=== PATIENT | male | born 1955 | race Caucasian/White ===

== ENCOUNTER 2016-09-19 20:43 | Outpatient (CLI) | payer OTHER ==
[2016-09-19 21:13] VITALS: BMI 27.0
== END 2016-09-19 20:44 | disposition home or self-care (01) ==
LOC: AMBL 20:43
PROVIDERS: ATTEND Family Medicine
DX: R10.9 Unspecified abdominal pain (principal); Z87.19 Personal history of other diseases of the digestive system; Z86.19 Personal history of other infectious and parasitic diseases

== ENCOUNTER 2016-09-19 20:55 | Emergency (ER) | payer OTHER ==
[2016-09-19 21:13] VITALS: BP 137/86; TEMP 97.2; BMI 27.0
[2016-09-19] MEDS ORDERED: PHENERGAN 25 MG/ML VIAL IM STA (21:24)
[2016-09-19] MEDS ORDERED: DILAUDID 1 MG/ML SYRINGE IM STA (21:24)
[2016-09-19] MEDS ORDERED: ZOFRAN 4 MG/2 ML IVP STA (21:29)
[2016-09-19] MEDS ORDERED: DILAUDID 1 MG/ML SYRINGE IVP STA ×2 (21:29→23:28)
[2016-09-19 21:40] LABS: BASOPHILS # (AUTO) 0.1 K/uL (0-0.2); EOSINOPHILS # (AUTO) 0.1 K/ul (0.0-0.7); EOSINOPHILS % (AUTO) 1.5 % (0.0-7.0); HEMATOCRIT 39.9 % (42.0-52.0); HEMOGLOBIN 13.4 g/dl (14.0-18.0); IMMATURE GRANULOCYTE % (AUTO) 0.2 % (0.0-5.0); LYMPHOCYTES # (AUTO) 4.2 K/uL (0.60-3.4); LYMPHOCYTES % (AUTO) 44.5 (10.0-50.0); MEAN CORPUSCULAR HEMOGLOBIN 32.1 pg (27.0-31.0); MEAN CORPUSCULAR HGB CONC 33.6 (31.8-35.4); MEAN CORPUSCULAR VOLUME 95.7 fl (80.0-94.0); MONOCYTES # (AUTO) 1.4 K/uL (0.4-2.0); MONOCYTES % (AUTO) 14.8 (0-10); NEUTROPHILS # (AUTO) 3.6 K/ul (2.0-6.9); PLATELET COUNT 330 10^3/uL (140-440); RED BLOOD COUNT 4.17 10^6/ul (4.70-6.10); WHITE BLOOD COUNT 9.33 K/ul (4.2-10.2)
--- NOTE | 2016-09-19 22:08 | CT ---
EXAM: CT scan abdomen pelvis without contrast HISTORY: Abdominal pain COMPARISON CT scan abdomen pelvis 08/01/2016 FINDINGS: Contiguous axial images obtained through the abdomen pelvis without contrast utilizing pr e mm collimation. Sagittal coronal reconstructions were imaged and reviewed.. The visualized lung bases are clear. There has been prior cholecystectomy and splenectomy.. Scattered calcifications a re seen in the pancreas compared with chronic pancreatitis. The liver is unremarkable. The kidneys and adrenal glands have normal unenhanced CT appearance. Nonspecific subcentimeter retroperitoneal lymph nodes. Atherosclerotic changes are seen involving the aorta without aneurysm formation.. Michelle stomotic small bowel sutures are seen to the left of midline within the upper pelvis. There is mild dilatation of the small bowel at the level of the anastomoses.. Degenerative changes are seen with in the lower lumbar spine. IMPRESSION: FINDINGS Chronic pancreatitis No acute findings. Cholecystectomy, splenectomy and small bowel surgery Mild distension of the small bowel at the level of the anastomosis without definitive obstructive ch anges. Suggest follow-up plain film examination of the abdomen.
[2016-09-19 22:15] LABS: ALBUMIN 2.7 g/dL (3.4-5.0); ALBUMIN/GLOBULIN RATIO 0.54; ANION GAP 10.5; BILIRUBIN,TOTAL 0.75 mg/dL (0.00-1.20); BUN/CREATININE RATIO 13.51; CALCIUM 8.4 mg/dL (8.2-10.2); CREATININE 0.74 mg/dL (0.60-1.10); POTASSIUM 3.5 mmol/L (3.5-5.1); TOTAL PROTEIN 7.7 g/dL (5.8-8.1); TROPONIN I 0.015 ng/ml (0.0000-0.4000)
[2016-09-19 22:51] LABS: ADD URINE MICROSCOPIC NO; BILIRUBIN,URINE Negative (NEGATIVE); KETONES,URINE Trace (NEGATIVE); LEUKOCYTE ESTERASE ,URINE Negative (NEGATIVE); NITRITE,URINE Negative (NEGATIVE); PH,URINE 5.5 (5-9); PROTEIN,URINE Negative (NEGATIVE); URINE, BLOOD Negative (NEGATIVE)
--- NOTE | 2016-09-19 23:31 | ED.PDOC ---
General ED Provider: Dr. CATHIE GARCIA-ER Chief Complaint: Abdominal Pain Stated Complaint: im hurting Time Seen by Physician: 20:55 Mode of Arrival: Ambulance Information Source: Patient Exam Limitations: No limitations Primary Care Provider: MACO GREENE Nursing and Triage Documentation Reviewed and Agree: Yes GI Complaint Exam - Abdominal Pain Complaint/Exam Onset: Gradual Duration: several hours Symptoms Are: Still present Timing: Constant Initial Severity: Mild Current Severity: Moderate Location of Pain: Diffuse Character: Reports: Dull, Aching, Cramping Aggravating: Reports: None Alleviating: Reports: None Associated Signs and Symptoms: Denies: Diaphoresis, Fever, Cough, Chest pain, Dizziness, Back pain, Constipation, Blood in stool, Dysuria, Urinary frequency, Decreased urine output, Decreased appetite, Discharge, Nausea, Vomiting, Diarrhea, Decreased activity Related History: Reports: Similar episode Related Surgical History: Reports: Cholecystectomy Abdominal Findings: Present: None Quality Indicator For Non-Traumatic Chest Pain/Syncope: EKG Performed Review of Systems - Review Of Systems Constitutional: Reports: No symptoms Eyes: Reports: No symptoms Ears, Nose, Mouth, Throat: Reports: No symptoms Respiratory: Reports: No symptoms Cardiac: Reports: No symptoms GI: Reports: Abdominal pain : Reports: No symptoms Musculoskeletal: Reports: No symptoms Skin: Reports: No symptoms Neurological: Reports: No symptoms Endocrine: Reports: No symptoms Hematologic/Lymphatic: Reports: No symptoms All Other Systems: Reviewed and Negative Past Medical History - Past Medical History Previously Healthy: Yes Endocrine: Reports: DM 2 (sugars controlled per patient - informed need closer control states is able to follow with Dr Greene) Cardiovascular: Reports: None Respiratory: Reports: None Hematological: Reports: None Gastrointestinal: Reports: Pancreatitis Genitourinary: Reports: None Neuro/Psych: Reports: None Musculoskeletal: Reports: Arthritis, Back Pain Cancer: Reports: None Other Pertinent Past Medical History: chronic low back pain, arthritis - Surgical History General Surgical History: Reports: Back Surgery, Other (Pancreatic stent placement March/removal 3 weeks ago - both in [employer]), Unknown (pancreas, stent placed in pancreas 03/09/16 in [place]) - Family History Family History: Reports: Unknown - Social History Smoking Status: Current every day smoker Hx Substance Use: Yes (alcohol) Alcohol Screening: None Lives: With family - Immunizations Tetanus Shot up to Date: Yes Physical Exam - Physical Exam Appearance: Well-appearing, No pain distress, Well-nourished Pain Distress: Moderate Eyes: BETTIE ENT: Ears normal, Nose normal, Oropharynx normal Neck: Supple Respiratory: Airway patent, Breath sounds clear, Breath sounds equal, Respirations nonlabored Cardiovascular: RRR, Pulses normal, No rub, No murmur GI/: Soft Musculoskeletal: Normal strength, ROM intact, No edema, No calf tenderness Skin: Warm, Dry, Normal color Neurological: Sensation intact, Motor intact, Reflexes intact, Cranial nerves intact, Alert, Oriented Psychiatric: Affect appropriate, Mood appropriate Interpretation - Radiology Interpretation Radiology Interpretation By: Radiologist Radiology Results: Positive Exam Interpreted: CT Scan - EKG Interpretation Time of EKG #1: 23:30 Rate: Normal Rhythm: Sinus Ectopy: None [place]: NL ST Segment: Normal Critical Care Note - Critical Care Note Total Time (mins): 0 Course - Course Hematology/Chemistry: 09/19/16 21:38 09/19/16 21:38 Orders, Labs, Meds: Lab Review 09/19/16 09/19/16 21:38 22:40 WBC 9.33 RBC 4.17 L Hgb 13.4 L Hct 39.9 L MCV 95.7 H MCH 32.1 H MCHC 33.6 RDW Coeff of Gui 14.3 Plt Count 330 Immature Gran % (Auto) 0.2 Neut % (Auto) 38.0 Lymph % (Auto) 44.5 [place] % (Auto) 14.8 H Eos % (Auto) 1.5 Baso % (Auto) 1.0 Immature Gran # (Auto) 0.0 Neut # 3.6 Lymph # 4.2 H [place] # 1.4 Eos # 0.1 Baso # 0.1 Sodium 140 Potassium 3.5 Chloride 107 Carbon Dioxide 26 Anion Gap 10.5 BUN 10 Creatinine 0.74 Estimated GFR (MDRD) 108.00 BUN/Creatinine Ratio 13.51 Glucose 83 Calcium 8.4 Total Bilirubin 0.75 AST 146 H ALT 100 H Alkaline Phosphatase 135 H Total Creatine Kinase 55 Troponin I 0.0150 Total Protein 7.7 Albumin 2.7 L Globulin 5.0 Albumin/Globulin Ratio 0.54 Amylase 53 Lipase 5 L Urine Color Yellow Urine Clarity Clear Urine pH 5.5 Ur Specific [place] 1.020 Urine Protein Negative Urine Glucose (UA) Negative Urine Ketones Trace Urine Blood Negative Urine Nitrite Negative Urine Bilirubin Negative Urine Urobilinogen 1.0 Ur Leukocyte Esterase Negative Orders Category Date Time Status EKG-(ED ONLY) Stat CARDIO 09/19/16 21:24 Completed AMYLASE Stat LAB 09/19/16 21:38 Completed CBC W/ AUTO DIFF Stat LAB 09/19/16 21:38 Completed COMPREHENSIVE METABOLIC PANEL Stat LAB 09/19/16 21:38 Completed CREATINE KINASE Stat LAB 09/19/16 21:38 Completed LIPASE Stat LAB 09/19/16 21:38 Completed TROPONIN I Stat LAB 09/19/16 21:38 Completed URINALYSIS C & S IF INDICATED Stat LAB 09/19/16 22:40 Completed Hydromorphone HCl [Dilaudid 1 mg/ml Syringe] MEDS 09/19/16 23:28 Stat 0.5 mg IVP ONCE STA Hydromorphone HCl [Dilaudid 1 mg/ml Syringe] MEDS 09/19/16 21:29 Discontinued 1 mg IVP ONCE STA Ondansetron HCl/Pf [Zofran 4 mg/2 ml] MEDS 09/19/16 21:29 Discontinued 4 mg IVP ONCE STA CT ABDOMEN/PELVIS WO CONTRAST Stat RADS 09/19/16 21:24 Completed Medications Generic Name Dose Route Start Last Admin Trade Name Freq PRN Reason Stop Dose Admin Hydromorphone HCl 0.5 mg 09/19/16 23:28 Dilaudid 1 Mg/Ml Syringe IVP 09/19/16 23:29 ONCE STA Discontinued Medications Generic Name Dose Route Start Last Admin Trade Name Freq PRN Reason Stop Dose Admin Hydromorphone HCl 1 mg 09/19/16 21:29 09/19/16 21:38 Dilaudid 1 Mg/Ml Syringe IVP 09/19/16 21:30 1 mg ONCE STA Administration Ondansetron HCl 4 mg 09/19/16 21:29 09/19/16 21:39 Zofran 4 Mg/2 Ml IVP 09/19/16 21:30 4 mg ONCE STA Administration Vital Signs: Temp Pulse Resp BP Pulse Ox 09/19/16 20:56 97.2 F L 73 18 137/86 94 L Departure - Departure Time of Disposition: 23:30 Disposition: HOME SELF-CARE Discharge Problem: Pancreatitis Qualifiers: Chronicity: chronic Pancreatitis type: unspecified pancreatitis type Qualifier Code: (K86.1) Other chronic pancreatitis Instructions: Pancreatitis (ED) Condition: Good Pt referred to PMD for follow-up: Yes Additional Instructions: f/u with pcp Allergies/Adverse Reactions: Allergies codeine Adverse Reaction (Verified 09/19/16 21:05) Sulfa (Sulfonamide Antibiotics) Adverse Reaction (Verified 09/19/16 21:05) Home Medications: Ambulatory Orders Escitalopram Oxalate 10 mg PO DAILY 04/01/13 Gabapentin 300 mg PO TID 04/01/13 Insulin Glargine,Hum.rec.anlog [Lantus] 15 unit SQ BEDTIME 04/02/13 Alprazolam [Xanax] 1 mg PO TID 07/09/13 Insulin Regular, Human [Novolin R] 100 unit IJ DIRECTED 07/09/13 Lipase/Protease/Amylase [Terri Singh 24,000 Units Capsule] 2 each PO DAILY Omeprazole [Prilosec] 20 mg PO QDAC 08/12/15 Hydrocodone/Acetaminophen [[place] 10-325 Tablet] 10 - 325 mg PO TID PRN 04/11/16 Disposition Discussed With: Patient
== END 2016-09-19 23:55 | disposition home or self-care (01) ==
LOC: ED 20:55
DX: K86.1 Other chronic pancreatitis (principal); E11.9 Type 2 diabetes mellitus without complications; F17.210 Nicotine dependence, cigarettes, uncomplicated; Z79.899 Other long term (current) drug therapy
CPT/HCPCS: 36415; 80053; 81001; 82150; 82550; 83690; 84484; 85025; 93005; 93010; 96374; 96375; 96376; 99283

== ENCOUNTER 2016-10-12 18:43 | Outpatient (CLI) ==
[2016-10-12 18:58] VITALS: BMI 27.4
== END 2016-10-12 18:44 | disposition home or self-care (01) ==
LOC: AMBL 18:43
PROVIDERS: ATTEND Emergency Medicine
DX: R10.9 Unspecified abdominal pain (principal)

== ENCOUNTER 2016-10-12 18:53 | Emergency (ER) ==
[2016-10-12 18:58] VITALS: BP 141/81; TEMP 98.1; BMI 27.4
--- NOTE | 2016-10-12 19:06 | ED.PDOC ---
General ED Provider: Dr. TRAN LAWLER Chief Complaint: Abdominal Pain Stated Complaint: Patient is a 61 year old femal who comes to the Er with bdominal pin for the lat two days. States the pain is intermitent. Started after he stopped taking Gabapentin for no reason. Time Seen by Physician: 19:05 Mode of Arrival: Ambulance Information Source: Patient Exam Limitations: No limitations Primary Care Provider: MACO GREENE Nursing and Triage Documentation Reviewed and Agree: Yes GI Complaint Exam - Abdominal Pain Complaint/Exam Onset: Gradual Duration: 2 days Symptoms Are: Still present Timing: Constant Initial Severity: Moderate Current Severity: Severe Location of Pain: Diffuse Radiates To: Reports: Inguinal Character: Reports: Dull, Aching Aggravating: Reports: Movement Associated Signs and Symptoms: Reports: Nausea. Denies: Diaphoresis, Fever, Cough, Chest pain, Dizziness, Back pain, Constipation, Blood in stool, Dysuria, Urinary frequency, Decreased urine output, Decreased appetite, Discharge, Vomiting, Diarrhea, Decreased activity AAA Risk Factors: Reports: None Cardiac Risk Factors: Reports: None Testicular Torsion Risk Factors: Reports: None Surgical Obstruction Risk Factors: Reports: None Related Surgical History: Reports: None Abdominal Findings: Present: Abdominal distention, Rebound tenderness, Peritoneal signs, McBurney's Point tender. Absent: CVA Tenderness Differential Diagnoses: Appendicitis, Gastroenteritis, Pancreatitis, UTI Review of Systems - Review Of Systems Constitutional: Reports: No symptoms Eyes: Reports: No symptoms Ears, Nose, Mouth, Throat: Reports: No symptoms Respiratory: Reports: No symptoms Cardiac: Reports: No symptoms GI: Reports: Abdominal pain, Poor appetite : Reports: No symptoms Musculoskeletal: Reports: No symptoms Skin: Reports: No symptoms Neurological: Reports: Anxiety Endocrine: Reports: No symptoms Hematologic/Lymphatic: Reports: No symptoms All Other Systems: Reviewed and Negative Past Medical History - Past Medical History Previously Healthy: Yes Endocrine: Reports: DM 2 (sugars controlled per patient - informed need closer control states is able to follow with Dr Greene) Cardiovascular: Reports: None Respiratory: Reports: None Hematological: Reports: None Gastrointestinal: Reports: Pancreatitis Genitourinary: Reports: None Neuro/Psych: Reports: None Musculoskeletal: Reports: Arthritis, Back Pain Cancer: Reports: None Other Pertinent Past Medical History: chronic low back pain, arthritis - Surgical History General Surgical History: Reports: Back Surgery, Other (Pancreatic stent placement March/removal 3 weeks ago - both in [place]), Unknown (pancreas, stent placed in pancreas 03/09/16 in [place]) - Family History Family History: Reports: Unknown - Social History Smoking Status: Current every day smoker Hx Substance Use: Yes (alcohol) Alcohol Screening: None - Immunizations Tetanus Shot up to Date: Yes Physical Exam - Physical Exam Appearance: Ill-appearing Ill-appearing: Moderate Pain Distress: Severe Eyes: BETTIE, EOMI, Conjunctiva clear ENT: Ears normal, Nose normal, Oropharynx normal Neck: Supple Respiratory: Airway patent, Breath sounds clear, Breath sounds equal, Respirations nonlabored Cardiovascular: RRR, Pulses normal, No rub, No murmur GI/: Soft, Tender, Bowel sounds hyperactive Musculoskeletal: Normal strength, ROM intact, No edema, No calf tenderness Skin: Warm, Dry, Normal color Neurological: Sensation intact, Motor intact Psychiatric: Anxious Interpretation - Radiology Interpretation Radiology Interpretation By: Radiologist Radiology Results: No acute changes (Possible cirrhosis) Exam Interpreted: CT Scan (Abdomen and Pelvis.) Re-Evaluation - Re-Evaluation Time of Re-Evaluation: 21:27 Status: Improved Vital Signs Stable: Yes Pain Level: better. Critical Care Note - Critical Care Note Total Time (mins): 0 Course - Course Hematology/Chemistry: 10/12/16 19:19 10/12/16 19:19 Orders, Labs, Meds: Lab Review 10/12/16 10/12/16 19:19 19:30 WBC 8.82 RBC 4.43 L Hgb 14.5 Hct 42.2 MCV 95.3 H MCH 32.7 H MCHC 34.4 RDW Coeff of Gui 14.4 Plt Count 263 Immature Gran % (Auto) 0.1 Neut % (Auto) 32.2 Lymph % (Auto) 49.2 [place] % (Auto) 15.9 H Eos % (Auto) 1.7 Baso % (Auto) 0.9 Immature Gran # (Auto) 0.0 Neut # 2.8 Lymph # 4.3 H [place] # 1.4 Eos # 0.2 Baso # 0.1 Sodium 135 L Potassium 4.5 Chloride 102 Carbon Dioxide 27 Anion Gap 10.5 BUN 11 Creatinine 0.83 Estimated GFR (MDRD) 94.00 BUN/Creatinine Ratio 13.25 Glucose 325 H Calcium 8.4 Total Bilirubin 1.04 AST 249 H ALT 178 H Alkaline Phosphatase 148 H Total Protein 8.0 Albumin 2.9 L Globulin 5.1 Albumin/Globulin Ratio 0.57 Amylase 60 Lipase 9 Urine Color Yellow Urine Clarity Clear Urine pH 6.0 Ur Specific [place] 1.020 Urine Protein Negative Urine Glucose (UA) 2+ Urine Ketones Negative Urine Blood Trace-intact Urine Nitrite Negative Urine Bilirubin Negative Urine Urobilinogen 1.0 Ur Leukocyte Esterase Negative Urine Microscopic RBC 2-5 Ur Squamous Epith Cells Not present Orders Category Date Time Status ED IV/MEDIPORT/POWERPORT .ONCE EMERGENCY 10/12/16 19:09 Active AMYLASE Stat LAB 10/12/16 19:19 Completed CBC W/ AUTO DIFF Stat LAB 10/12/16 19:19 Completed COMPREHENSIVE METABOLIC PANEL Stat LAB 10/12/16 19:19 Completed HEPATITIS PANEL, ACUTE Stat LAB 10/12/16 19:20 Received LIPASE Stat LAB 10/12/16 19:19 Completed URINALYSIS C & S IF INDICATED Stat LAB 10/12/16 19:30 Completed 0.9 % Sodium Chloride [Saline Flush] MEDS 10/12/16 19:09 Ordered 1 syr IVF PRN PRN Dicyclomine Inj [Bentyl] MEDS 10/12/16 19:20 Discontinued 20 mg IM ONCE STA Ondansetron HCl/Pf [Zofran 4 mg/2 ml] MEDS 10/12/16 19:20 Discontinued 4 mg IVP ONCE STA Pantoprazole Sodium [Protonix IV] MEDS 10/12/16 19:20 Discontinued 40 mg IVP ONCE STA Sodium Chloride 0.9% [Sodium Chloride] 1,000 ml MEDS 10/12/16 19:[address] ABD/PEL WO RENAL STONE PROT Stat RADS 10/12/16 19:09 Completed Medications Generic Name Dose Route Start Last Admin Trade Name Freq PRN Reason Stop Dose Admin Sodium Chloride 1 syr 10/12/16 19:09 10/12/16 19:52 Saline Flush IVF 1 syr PRN PRN Administration To flush IV Discontinued Medications Generic Name Dose Route Start Last Admin Trade Name Freq PRN Reason Stop Dose Admin Dicyclomine HCl 20 mg 10/12/16 19:20 10/12/16 19:43 Bentyl IM 10/12/16 19:21 20 mg ONCE STA Administration Sodium Chloride 1,000 mls @ 1,000 mls/hr 10/12/16 19:09 10/12/16 19:55 Sodium Chloride IV 10/12/16 20:08 1,000 mls/hr BOLUS STA Administration Ondansetron HCl 4 mg 10/12/16 19:20 10/12/16 19:42 Zofran 4 Mg/2 Ml IVP 10/12/16 19:21 4 mg ONCE STA Administration Pantoprazole Sodium 40 mg 10/12/16 19:20 10/12/16 19:40 Protonix Iv IVP 10/12/16 19:21 40 mg ONCE STA Administration Vital Signs: Temp Pulse Resp BP Pulse Ox 10/12/16 18:55 98.1 F 80 16 141/81 H 98 Departure - Departure Time of Disposition: 21:19 Disposition: HOME SELF-CARE Discharge Problem: Abdominal pain, Elevated liver enzymes, Cirrhosis of liver Instructions: Acute Abdominal Pain (ED) Condition: Fair Pt referred to PMD for follow-up: Yes (in the morning. ) Additional Instructions: Follow up with PCP in 3-5 days Take home pain medications as needed. Take Bentyl as needed for Abdominal spasms Resume Neurontin at Night only until you see your doctor Prescriptions: Dicyclomine HCl [Bentyl] 10 mg PO TID PRN #20 capsule PRN Reason: Abdominal Pain Allergies/Adverse Reactions: Allergies codeine Adverse Reaction (Verified 09/19/16 21:05) Sulfa (Sulfonamide Antibiotics) Adverse Reaction (Verified 09/19/16 21:05) Home Medications: Ambulatory Orders Escitalopram Oxalate 10 mg PO DAILY 04/01/13 Gabapentin 300 mg PO TID 04/01/13 Insulin Glargine,Hum.rec.anlog [Lantus] 15 unit SQ BEDTIME 04/02/13 Alprazolam [Xanax] 1 mg PO TID 07/09/13 Insulin Regular, Human [Novolin R] 100 unit IJ DIRECTED 07/09/13 Lipase/Protease/Amylase [Terri Singh 24,000 Units Capsule] 2 each PO DAILY Omeprazole [Prilosec] 20 mg PO QDAC 08/12/15 Hydrocodone/Acetaminophen [[place] 10-325 Tablet] 10 - 325 mg PO TID PRN 04/11/16 Dicyclomine HCl [Bentyl] 10 mg PO TID PRN #20 capsule 10/12/16 Disposition Discussed With: Patient
[2016-10-12] MEDS ORDERED: SODIUM CHLORIDE 1,000 ML IV STA (19:09)
[2016-10-12] MEDS ORDERED: PROTONIX IV IVP STA (19:20)
[2016-10-12] MEDS ORDERED: BENTYL IM STA (19:20)
[2016-10-12] MEDS ORDERED: ZOFRAN 4 MG/2 ML IVP STA (19:20)
[2016-10-12 19:34] LABS: BASOPHILS # (AUTO) 0.1 K/uL (0-0.2); BASOPHILS % (AUTO) 0.9 % (0.0-3.0); EOSINOPHILS # (AUTO) 0.2 K/ul (0.0-0.7); EOSINOPHILS % (AUTO) 1.7 % (0.0-7.0); HEMATOCRIT 42.2 % (42.0-52.0); HEMOGLOBIN 14.5 g/dl (14.0-18.0); IMMATURE GRANULOCYTE % (AUTO) 0.1 % (0.0-5.0); LYMPHOCYTES # (AUTO) 4.3 K/uL (0.60-3.4); LYMPHOCYTES % (AUTO) 49.2 (10.0-50.0); MEAN CORPUSCULAR HEMOGLOBIN 32.7 pg (27.0-31.0); MEAN CORPUSCULAR HGB CONC 34.4 (31.8-35.4); MEAN CORPUSCULAR VOLUME 95.3 fl (80.0-94.0); MONOCYTES # (AUTO) 1.4 K/uL (0.4-2.0); MONOCYTES % (AUTO) 15.9 (0-10); NEUTROPHILS # (AUTO) 2.8 K/ul (2.0-6.9); NEUTROPHILS % (AUTO) 32.2; PLATELET COUNT 263 10^3/uL (140-440); RED BLOOD COUNT 4.43 10^6/ul (4.70-6.10); WHITE BLOOD COUNT 8.82 K/ul (4.2-10.2)
--- NOTE | 2016-10-12 19:52 | CT ---
EXAM: CT abdomen pelvis without intravenous contrast 10/12/2016. Sagittal and coronal reformatted images obtained HISTORY: Abdominal pain COMPARISON: 09/19/2016 FINDINGS: Subtle nodularity of the anterior liver surface. Hypertrophic caudate. Correlate for ci rrhosis. Status post cholecystectomy. The adrenal glands and kidneys show no acute abnormality. There is no evidence of bowel obstruction. Multiple pancreatic calcifications suggesting chronic pancreatitis. There is no evidence of bowel obstruction. Unremarkable urinary bladder There is no free air or free fluid. Anatomic detail is limited due to the lack of intravenous contr ast. Normal appendix. Mixed lytic sclerotic regions superior to the right acetabulum appears chronic and stable. This ina ears chronic and benign. IMPRESSION: 1. Question cirrhotic morphology of the liver. 2. Status post cholecystectomy. 3. No urinary or bowel obstruction. 4. Finding suggesting chronic pancreatitis. 5. No acute inflammatory process identified within the abdomen or pelvis within the limitation of a noncontrast enhanced examination. 6. Surgical anastomoses of small bowel within the left anterior abdomen, image 64. This area is no t well characterized due to lack of contrast. Further evaluation may be obtained as clinically luzma cated.
[2016-10-12 19:57] LABS: ALBUMIN 2.9 g/dL (3.4-5.0); ALBUMIN/GLOBULIN RATIO 0.57; ANION GAP 10.5; BILIRUBIN,TOTAL 1.04 mg/dL (0.00-1.20); BUN/CREATININE RATIO 13.25; CALCIUM 8.4 mg/dL (8.2-10.2); CREATININE 0.83 mg/dL (0.60-1.10); POTASSIUM 4.5 mmol/L (3.5-5.1)
[2016-10-12 20:00] LABS: BILIRUBIN,URINE Negative (NEGATIVE); KETONES,URINE Negative (NEGATIVE); LEUKOCYTE ESTERASE ,URINE Negative (NEGATIVE); NITRITE,URINE Negative (NEGATIVE); PROTEIN,URINE Negative (NEGATIVE); URINE, BLOOD Trace-intact (NEGATIVE)
[2016-10-12 20:04] LABS: ADD URINE MICROSCOPIC YES
== END 2016-10-12 21:30 | disposition home or self-care (01) ==
LOC: ED 18:53
DX: R10.84 Generalized abdominal pain (principal); R74.8 Abnormal levels of other serum enzymes; K74.60 Unspecified cirrhosis of liver; E11.9 Type 2 diabetes mellitus without complications; F17.210 Nicotine dependence, cigarettes, uncomplicated; Z79.899 Other long term (current) drug therapy
CPT/HCPCS: 36415; 74176; 80053; 80074; 81001; 82150; 83690; 85025; 96360; 96361; 96372; 96374; 96375; 99284

== ENCOUNTER 2016-10-25 11:33 | Emergency (ER) ==
[2016-10-25 11:41] VITALS: BP 127/78; TEMP 97.3; BMI 26.6
--- NOTE | 2016-10-25 12:52 | ED.PDOC ---
General ED Provider: Dr. CHELLE MUHAMMAD JR Chief Complaint: Dizziness Stated Complaint: dizzy and nauseated last night upon awakening, and again today , ate but still dizzy. denies headache.[ End ]97.3 73 16 93% 127/78 sinus congestion. speech is slurred slow to answer questions. normal for patient[ End ] Time Seen by Physician: 12:52 Mode of Arrival: Walk-In Information Source: Patient Exam Limitations: No limitations Primary Care Provider: PIERCE GREENE Nursing and Triage Documentation Reviewed and Agree: No Neurological Complaint Exam - Dizziness Complaint/Exam Last Known Well: 1800 10/24/16 Onset: Sudden Symptoms Are: Still present Timing: Constant Initial Severity: Moderate Current Severity: Moderate Character: Reports: Room spinning Aggravating: Reports: Exertion Alleviating: Reports: Rest Associated Signs and Symptoms: Reports: Nausea Related History: Similar episode Review of Systems - Review Of Systems Constitutional: Reports: Malaise, Weakness Eyes: Reports: No symptoms Ears, Nose, Mouth, Throat: Reports: No symptoms Respiratory: Reports: No symptoms Cardiac: Reports: No symptoms GI: Reports: Abdominal pain : Reports: No symptoms Musculoskeletal: Reports: Other (RIGHT ARM) Skin: Reports: No symptoms Neurological: Reports: Anxiety, Cognitive dysfunction (NOTE PMD STATES HISTORY OF 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, CHRONIC MEDICATION USE HISTORY OF ALCOHOLISM) Endocrine: Reports: Increased thirst Hematologic/Lymphatic: Reports: No symptoms All Other Systems: Other Past Medical History - Past Medical History Previously Healthy: Yes Endocrine: Reports: DM 2 (sugars controlled per patient follows with Dr Greene) Cardiovascular: Reports: None Respiratory: Reports: None Hematological: Reports: None Gastrointestinal: Reports: Pancreatitis Genitourinary: Reports: None Neuro/Psych: Reports: None Musculoskeletal: Reports: Arthritis, Back Pain Cancer: Reports: None Other Pertinent Past Medical History: chronic low back pain, arthritis ABCESS DRAINED(pancreas) - Surgical History General Surgical History: Reports: Back Surgery, Other (Pancreatic stent placement March/ - both in [place]), Unknown (pancreas, stent placed in pancreas 03/09/16 in [place]) - Family History Family History: Reports: Unknown - Social History Smoking Status: Current every day smoker Hx Substance Use: Yes (alcohol) Alcohol Screening: None Physical Exam - Physical Exam Appearance: Ill-appearing Ill-appearing: Mild Pain Distress: Moderate Eyes: EOMI, Conjunctiva clear, Right pupil size (3mm fixed not responsive to light able to count fingers on left not on right - states did not know he could not see out of right unsure how long this may have lasted) ENT: Ears normal, Nose normal, Oropharynx normal Neck: Supple Respiratory: Airway patent, Breath sounds equal, Respirations nonlabored, Rhonchi Cardiovascular: RRR, Pulses normal GI/: Soft, No masses, Bowel sounds normal, Tender Musculoskeletal: Limited ROM (unable to lift right aqrm over shoulder states this is new unsure how long; dizziness since awakening at six or seven pm last night, unsteady with but able to walk on right leg) Skin: Warm, Dry, Normal color Neurological: Alert (speeck clear slurred as if intoxicated but baseline - patient states not drinking in years due tro pancreatitis requests blood sugar check) Psychiatric: Affect appropriate Physician Notification - Case Discussed Physician Notified: pierce grace at [facility]- new changes- needs to see neurologist(need Time of Notification: 14:58 (also needs local pmd) Physician Notified: denia warnerdes Time of Notification: 15:06 (dr domínguez, accept obs when bed available [id number]) Critical Care Note - Critical Care Note Total Time (mins): 0 Course - Course Hematology/Chemistry: 10/25/16 13:16 10/25/16 13:16 Orders, Labs, Meds: Lab Review 10/25/16 10/25/16 13:16 16:00 WBC 7.91 RBC 4.51 L Hgb 14.9 Hct 42.8 MCV 94.9 H MCH 33.0 H MCHC 34.8 RDW Coeff of Gui 14.3 Plt Count 305 Immature Gran % (Auto) 0.3 Neut % (Auto) 43.9 Lymph % (Auto) 39.4 [place] % (Auto) 14.9 H Eos % (Auto) 0.6 Baso % (Auto) 0.9 Immature Gran # (Auto) 0.0 Neut # 3.5 Lymph # 3.1 [place] # 1.2 Eos # 0.1 Baso # 0.1 Sodium 133 L Potassium 5.0 Chloride 100 Carbon Dioxide 28 Anion Gap 10.0 BUN 12 Creatinine 0.97 Estimated GFR (MDRD) 79.00 BUN/Creatinine Ratio 12.37 Glucose 380 H Calcium 8.7 Total Bilirubin 1.25 H AST 164 H ALT 123 H Alkaline Phosphatase 145 H Total Protein 7.9 Albumin 2.9 L Globulin 5.0 Albumin/Globulin Ratio 0.58 Amylase 33 Lipase 6 L Urine Color Yellow Urine Clarity Clear Urine pH 6.0 Ur Specific [place] <=1.005 Urine Protein Negative Urine Glucose (UA) 2+ Urine Ketones Negative Urine Blood Negative Urine Nitrite Negative Urine Bilirubin Negative Urine Urobilinogen 1.0 Ur Leukocyte Esterase Negative H. pylori IgG Antibody Negative Orders Category Date Time Status ACCUCHECK (ED) [ED ACCUCHECK ASSESSMENT] .ONCE EMERGENCY 10/25/16 15:39 Active AMYLASE Stat LAB 10/25/16 13:16 Completed CBC W/ AUTO DIFF Stat LAB 10/25/16 13:16 Completed COMPREHENSIVE METABOLIC PANEL Stat LAB 10/25/16 13:16 Completed H. PYLORI SCREEN Stat LAB 10/25/16 13:16 Completed LIPASE Stat LAB 10/25/16 13:16 Completed URINALYSIS C & S IF INDICATED Stat LAB 10/25/16 16:00 Completed Gabapentin [Neurontin] MEDS 10/26/16 09:00 Discontinued 300 mg PO DAILY Hydrocodone Bit/Acetaminophen [[place] 10-325] MEDS 10/25/16 17:49 Discontinued 1 tab PO ONCE STA Insulin Regular, Human [Humulin R] MEDS 10/25/16 15:47 Discontinued 8 unit SUBCUT ONCE STA Meclizine HCl [Antivert] MEDS 10/25/16 13:11 Discontinued 25 mg PO ONCE STA Sodium Chloride 0.9% [Sodium Chloride] 1,000 ml MEDS 10/25/16 15:49 Discontinued IV 125 mls/hr CT ABDOMEN/PELVIS WO CONTRAST Stat RADS 10/25/16 13:[address] HEAD W/O CONTRAST Stat RADS 10/25/16 13:10 Completed Medications Discontinued Medications Generic Name Dose Route Start Last Admin Trade Name Freq PRN Reason Stop Dose Admin Acetaminophen/Hydrocodone Bitart 1 tab 10/25/16 17:49 10/25/16 18:03 [place] 10-325 PO 10/25/16 17:50 Not Given ONCE STA Gabapentin 300 mg 10/26/16 09:00 Neurontin PO DAILY NI Sodium Chloride 1,000 mls @ 125 mls/hr 10/25/16 15:49 10/25/16 16:23 Sodium Chloride IV 10/25/16 23:48 125 mls/hr .Q8H STA Administration Insulin Human Regular 8 unit 10/25/16 15:47 10/25/16 16:22 Humulin R SUBCUT 10/25/16 15:48 8 unit ONCE STA Administration Meclizine HCl 25 mg 10/25/16 13:11 10/25/16 13:29 Antivert PO 10/25/16 13:12 25 mg ONCE STA Administration Vital Signs: Temp Pulse Resp BP Pulse Ox 10/25/16 11:33 97.3 F L 73 16 127/78 93 L Departure - Departure Time of Disposition: 17:00 Disposition: TSF SHORT-TRM HOSP Discharge Problem: Dizziness CVA (cerebral vascular accident) Qualifiers: CVA mechanism: unspecified Qualifier Code: (I63.9) Cerebral infarction, unspecified Condition: Good Pt referred to PMD for follow-up: No (transferred) Allergies/Adverse Reactions: Allergies codeine Adverse Reaction (Verified 10/25/16 11:43) Sulfa (Sulfonamide Antibiotics) Adverse Reaction (Verified 10/25/16 11:43) Home Medications: Ambulatory Orders Escitalopram Oxalate 10 mg PO DAILY 04/01/13 Gabapentin 300 mg PO TID 04/01/13 Insulin Glargine,Hum.rec.anlog [Lantus] 15 unit SQ BEDTIME 04/02/13 Alprazolam [Xanax] 1 mg PO TID 07/09/13 Insulin Regular, Human [Novolin R] 100 unit IJ DIRECTED 07/09/13 Lipase/Protease/Amylase [Terri Singh 24,000 Units Capsule] 2 each PO DAILY Omeprazole [Prilosec] 20 mg PO QDAC 08/12/15 Hydrocodone/Acetaminophen [[place] 10-325 Tablet] 10 - 325 mg PO TID PRN 04/11/16 Dicyclomine HCl [Bentyl] 10 mg PO TID PRN #20 capsule 10/12/16
[2016-10-25] MEDS ORDERED: ANTIVERT PO STA (13:11)
[2016-10-25 13:22] LABS: BASOPHILS # (AUTO) 0.1 K/uL (0-0.2); BASOPHILS % (AUTO) 0.9 % (0.0-3.0); EOSINOPHILS # (AUTO) 0.1 K/ul (0.0-0.7); EOSINOPHILS % (AUTO) 0.6 % (0.0-7.0); HEMATOCRIT 42.8 % (42.0-52.0); HEMOGLOBIN 14.9 g/dl (14.0-18.0); IMMATURE GRANULOCYTE % (AUTO) 0.3 % (0.0-5.0); LYMPHOCYTES # (AUTO) 3.1 K/uL (0.60-3.4); LYMPHOCYTES % (AUTO) 39.4 (10.0-50.0); MEAN CORPUSCULAR HGB CONC 34.8 (31.8-35.4); MEAN CORPUSCULAR VOLUME 94.9 fl (80.0-94.0); MONOCYTES # (AUTO) 1.2 K/uL (0.4-2.0); MONOCYTES % (AUTO) 14.9 (0-10); NEUTROPHILS # (AUTO) 3.5 K/ul (2.0-6.9); NEUTROPHILS % (AUTO) 43.9; PLATELET COUNT 305 10^3/uL (140-440); RED BLOOD COUNT 4.51 10^6/ul (4.70-6.10); WHITE BLOOD COUNT 7.91 K/ul (4.2-10.2)
[2016-10-25 13:30] LABS: H. PYLORI ANTIBODY NEGATIVE (NEGATIVE); H.PYLORI INTERNAL QC INTERNAL QC VALID
[2016-10-25 13:40] LABS: ALBUMIN 2.9 g/dL (3.4-5.0); ALBUMIN/GLOBULIN RATIO 0.58; BILIRUBIN,TOTAL 1.25 mg/dL (0.00-1.20); BUN/CREATININE RATIO 12.37; CALCIUM 8.7 mg/dL (8.2-10.2); CREATININE 0.97 mg/dL (0.60-1.10); TOTAL PROTEIN 7.9 g/dL (5.8-8.1)
--- NOTE | 2016-10-25 13:48 | CT ---
EXAM: CT head without contrast. HISTORY: Confusion. Dizziness. Right arm weakness. Right visual loss. Difficulty speaking and w alking. COMPARISON: 07/08/2016. TECHNIQUE: Multiple axial images of the brain were obtained from the skull base through the vertex without intravenous contrast. FINDINGS: There is no intracranial hemorrhage or extraaxial collection. The comer-white differentia tion is maintained without evidence for acute large vascular territory infarction. Chronic small ve ssel. Changes again noted. The cortical sulci and basal cisterns are well visualized. There is no hydrocephalus, mass effect, or midline shift. The paranasal sinuses and mastoid air cells are grover r. The calvarium is intact. Old displaced nasal bone fractures again seen. Since the prior study, there has been no significant interval change. IMPRESSION: No acute intracranial abnormality. Consider correlation with MRI if there is concern for acute cere brovascular accident.
--- NOTE | 2016-10-25 14:00 | CT ---
EXAM: CT ABDOMEN AND PELVIS HISTORY: Abdominal pain TECHNIQUE: CT abdomen and pelvis without intravenous contrast. Images were reconstructed using 5 m m section thickness. Reformations were prepared. COMPARISON: 09/19/2016 FINDINGS: Diagnostic limitations exist without including contrast enhanced images. No obvious focal hepatic l esions. No spleen is identified. Gallbladder is absent. Pancreas has scattered calcifications con sistent with chronic pancreatitis. The pancreas is poorly delineated. There is mild diffuse fat st randing of the mesentery. No hydronephrosis is identified. Mild to moderate atherosclerotic diseas e. There appear to be enlarged retroperitoneal lymph nodes, similar to that previously seen. There is no gastric distension. The appendix is identified with no evidence of inflammation. There is a mid abdominal bowel anastomoses. No evidence of bowel obstruction. Urinary bladder is within normal unremarkable urinary bladder. No evidence of prostate enlargement. No ascites. Prominent fatty bilateral inguinal and bones. Bones reveal severe sclerosis of the endplates at L5/ S1 with apparent severe degenerative disc disease at this level. Mild erosion of the endplates at L 5/S1. These findings appear similar to prior studies dating as far back as 12/13/2014. Diskitis an d endplate osteomyelitis would therefore be less likely etiology. Redemonstration of cystic areas w ithin the right iliac bone/acetabulum without noticeable change. Lung bases are free of acute infil trate. No pneumoperitoneum. IMPRESSION: 1. Bowel anastomoses mid abdomen. Normal bowel gas pattern. 2. Evidence of chronic pancreatitis. 3. Enlarged retroperitoneal lymph nodes, these appear stable. 4. Apparent longstanding degenerative changes at L5/S1 as described. Correlate clinically.
[2016-10-25] MEDS ORDERED: HUMULIN R SUBCUT STA (15:47)
[2016-10-25] MEDS ORDERED: SODIUM CHLORIDE 1,000 ML IV STA (15:49)
[2016-10-25 16:18] LABS: ADD URINE MICROSCOPIC NO; BILIRUBIN,URINE Negative (NEGATIVE); KETONES,URINE Negative (NEGATIVE); LEUKOCYTE ESTERASE ,URINE Negative (NEGATIVE); NITRITE,URINE Negative (NEGATIVE); PROTEIN,URINE Negative (NEGATIVE); URINE, BLOOD Negative (NEGATIVE)
[2016-10-25] MEDS ORDERED: NORCO 10-325 PO STA (17:49)
[2016-10-26] MEDS ORDERED: NEURONTIN PO SCH (09:00)
== END 2016-10-25 18:09 | disposition short-term general hospital (02) ==
LOC: ED 11:33
DX: I63.9 Cerebral infarction, unspecified (principal); R42 Dizziness and giddiness; E11.9 Type 2 diabetes mellitus without complications; F17.210 Nicotine dependence, cigarettes, uncomplicated; Z79.899 Other long term (current) drug therapy; Z87.19 Personal history of other diseases of the digestive system
CPT/HCPCS: 36415; 80053; 81001; 82150; 82962; 83690; 85025; 86677; 96360; 96372; 99285

== ENCOUNTER 2016-10-25 18:12 | Outpatient (CLI) ==
[2016-10-25 11:41] VITALS: BMI 26.6
== END 2016-10-25 18:13 ==
LOC: AMBL 18:12
PROVIDERS: ATTEND Emergency Medicine
DX: R42 Dizziness and giddiness (principal); R73.9 Hyperglycemia, unspecified

== ENCOUNTER 2017-01-09 13:41 | Emergency (ER) ==
[2017-01-09 13:47] VITALS: BP 146/81; TEMP 97
[2017-01-09 13:48] VITALS: BMI 26.6
== END 2017-01-09 15:26 | disposition left against medical advice (07) ==
LOC: ED 13:41
DX: R10.13 Epigastric pain (principal); R10.84 Generalized abdominal pain; E11.9 Type 2 diabetes mellitus without complications; D64.9 Anemia, unspecified; R94.5 Abnormal results of liver function studies; F17.210 Nicotine dependence, cigarettes, uncomplicated; Z87.19 Personal history of other diseases of the digestive system; Z79.899 Other long term (current) drug therapy
CPT/HCPCS: 36415; 80053; 82150; 82550; 83690; 84484; 85025; 93005; 93010; 99283

== ENCOUNTER 2017-01-09 16:46 | Emergency (ER) ==
[2017-01-09 16:46] VITALS: BMI 26.6
[2017-01-09 16:51] VITALS: BP 127/80; TEMP 97.9
[2017-01-09 17:26] LABS: BASOPHILS # (AUTO) 0.1 K/uL (0-0.2); BASOPHILS % (AUTO) 0.7 % (0.0-3.0); EOSINOPHILS % (AUTO) 0.6 % (0.0-7.0); HEMATOCRIT 40.2 % (42.0-52.0); HEMOGLOBIN 14.1 g/dl (14.0-18.0); IMMATURE GRANULOCYTE % (AUTO) 0.3 % (0.0-5.0); LYMPHOCYTES # (AUTO) 3.3 K/uL (0.60-3.4); LYMPHOCYTES % (AUTO) 45.9 (10.0-50.0); MEAN CORPUSCULAR HEMOGLOBIN 33.4 pg (27.0-31.0); MEAN CORPUSCULAR HGB CONC 35.1 (31.8-35.4); MEAN CORPUSCULAR VOLUME 95.3 fl (80.0-94.0); MONOCYTES # (AUTO) 0.9 K/uL (0.4-2.0); MONOCYTES % (AUTO) 12.8 (0-10); NEUTROPHILS # (AUTO) 2.9 K/ul (2.0-6.9); NEUTROPHILS % (AUTO) 39.7; PLATELET COUNT 239 10^3/uL (140-440); RED BLOOD COUNT 4.22 10^6/ul (4.70-6.10); WHITE BLOOD COUNT 7.24 K/ul (4.2-10.2)
[2017-01-09 17:43] LABS: AMYLASE 44 U/L (25-115)
[2017-01-09 17:51] LABS: ALANINE AMINOTRANSFERASE 106 U/L (12-78); ALBUMIN 2.8 g/dL (3.4-5.0); ALBUMIN/GLOBULIN RATIO 0.56; ANION GAP 7.4; ASPARTATE AMINO TRANSFERASE 129 U/L (15-37); BLOOD UREA NITROGEN 12 mg/dL (7-18); BUN/CREATININE RATIO 11.32; CALCIUM 8.9 mg/dL (8.2-10.2); CARBON DIOXIDE 29 mmol/L (23-31); CHLORIDE 104 mmol/L (98-107); CREATINE KINASE 44 U/L; CREATININE 1.06 mg/dL (0.60-1.10); GLUCOSE 300 mg/dL (82-115); POTASSIUM 4.4 mmol/L (3.5-5.1); SODIUM 136 mmol/L (136-145); TOTAL PROTEIN 7.8 g/dL (5.8-8.1)
[2017-01-09 17:52] LABS: ALKALINE PHOSPHATASE 119 U/L (56-119)
[2017-01-09 17:53] LABS: LIPASE 4 U/L (8-78)
--- NOTE | 2017-01-09 18:18 | ED.PDOC ---
General ED Provider: Dr. PIERRE LIMA Chief Complaint: Abdominal Pain Stated Complaint: ABDOMINAL PAIN Time Seen by Physician: 17:00 (DEISI AT BEDSIDE AT ALL TIMES) Mode of Arrival: Walk-In Information Source: Patient Exam Limitations: No limitations Nursing and Triage Documentation Reviewed and Agree: Yes GI Complaint Exam - Abdominal Pain Complaint/Exam Onset: Gradual Duration: 1 DAY Symptoms Are: Resolved Timing: Intermittent Initial Severity: Mild Current Severity: None Location of Pain: Diffuse Character: Reports: Dull Aggravating: Reports: None Alleviating: Reports: None Associated Signs and Symptoms: Denies: Diaphoresis, Fever, Cough, Chest pain, Dizziness, Back pain, Constipation, Blood in stool, Dysuria, Urinary frequency, Decreased urine output, Decreased appetite, Discharge, Nausea, Vomiting, Diarrhea, Decreased activity Related History: Reports: Similar episode AAA Risk Factors: Reports: None Cardiac Risk Factors: Reports: DM Testicular Torsion Risk Factors: Reports: None Surgical Obstruction Risk Factors: Reports: None Related Surgical History: Reports: None Abdominal Findings: Present: None Differential Diagnoses: Appendicitis, Bowel Obstruction, Constipation, Diverticulitis, Gastroenteritis, Hepatitis, Pancreatitis Quality Indicators for AMI: EKG in 10min. Quality Indicators for Cardiac Chest Pain: EKG in 10min. Review of Systems - Review Of Systems Constitutional: Reports: No symptoms Eyes: Reports: No symptoms Ears, Nose, Mouth, Throat: Reports: No symptoms Respiratory: Reports: No symptoms Cardiac: Reports: No symptoms GI: Reports: Abdominal pain : Reports: No symptoms Musculoskeletal: Reports: No symptoms Skin: Reports: No symptoms Neurological: Reports: No symptoms Endocrine: Reports: No symptoms Hematologic/Lymphatic: Reports: No symptoms All Other Systems: Reviewed and Negative Past Medical History - Past Medical History Previously Healthy: Yes Endocrine: Reports: DM 2 (sugars controlled per patient follows with Dr Garg) Cardiovascular: Reports: None Respiratory: Reports: None Hematological: Reports: None Gastrointestinal: Reports: Pancreatitis Genitourinary: Reports: None Neuro/Psych: Reports: None Musculoskeletal: Reports: Arthritis, Back Pain Cancer: Reports: None Other Pertinent Past Medical History: chronic low back pain, arthritis ABCESS DRAINED(pancreas) - Surgical History General Surgical History: Reports: Back Surgery, Other (Pancreatic stent placement March/ - both in [place]), Unknown (pancreas, stent placed in pancreas 03/09/16 in [place]) - Family History Family History: Reports: Unknown - Social History Smoking Status: Current every day smoker Hx Substance Use: Yes (alcohol) Alcohol Screening: None Physical Exam - Physical Exam Appearance: Well-appearing, No pain distress, Well-nourished Eyes: BETTIE, EOMI, Conjunctiva clear ENT: Ears normal, Nose normal, Oropharynx normal Respiratory: Airway patent, Breath sounds clear, Breath sounds equal, Respirations nonlabored Cardiovascular: RRR, Pulses normal, No rub, No murmur GI/: Soft, Nontender, No masses, Bowel sounds normal, No Organomegaly Musculoskeletal: Normal strength, ROM intact, No edema, No calf tenderness Skin: Warm, Dry, Normal color Neurological: Sensation intact, Motor intact, Reflexes intact, Cranial nerves intact, Alert, Oriented Psychiatric: Affect appropriate, Mood appropriate Interpretation - Radiology Interpretation Radiology Interpretation By: Radiologist Radiology Results: No acute changes - Primary Care Nurse Rate: Eb Rhythm: Sinus - EKG Interpretation Rate: Eb Rhythm: Sinus Critical Care Note - Critical Care Note Total Time (mins): 0 Course - Course Hematology/Chemistry: 01/09/17 17:22 01/09/17 17:22 Orders, Labs, Meds: Lab Review 01/09/17 01/09/17 17:20 17:22 WBC 7.24 RBC 4.22 L Hgb 14.1 Hct 40.2 L MCV 95.3 H MCH 33.4 H MCHC 35.1 RDW Coeff of Gui 13.1 Plt Count 239 Immature Gran % (Auto) 0.3 Neut % (Auto) 39.7 Lymph % (Auto) 45.9 [place] % (Auto) 12.8 H Eos % (Auto) 0.6 Baso % (Auto) 0.7 Immature Gran # (Auto) 0.0 Neut # 2.9 Lymph # 3.3 [place] # 0.9 Eos # 0.0 Baso # 0.1 Sodium 136 Potassium 4.4 Chloride 104 Carbon Dioxide 29 Anion Gap 7.4 BUN 12 Creatinine 1.06 Estimated GFR (MDRD) 71.00 BUN/Creatinine Ratio 11.32 Glucose 300 H Calcium 8.9 Total Bilirubin 1.50 H AST 129 H ALT 106 H Alkaline Phosphatase 119 Total Creatine Kinase 44 Troponin I < 0.0100 Total Protein 7.8 Albumin 2.8 L Globulin 5.0 Albumin/Globulin Ratio 0.56 Amylase 44 Lipase 4 L Orders Category Date Time Status EKG-(ED ONLY) Stat CARDIO 01/09/17 17:17 Completed AMYLASE Stat LAB 01/09/17 17:20 Completed CBC W/ AUTO DIFF Stat LAB 01/09/17 17:22 Completed COMPREHENSIVE METABOLIC PANEL Stat LAB 01/09/17 17:22 Completed CREATINE KINASE Stat LAB 01/09/17 17:22 Completed LIPASE Stat LAB 01/09/17 17:20 Completed TROPONIN I Stat LAB 01/09/17 17:22 Completed CHEST, 2 VIEWS PA & LAT Stat RADS 01/09/17 17:[address] ABDOMEN/PELVIS WO CONTRAST Stat RADS 01/09/17 17:16 Taken Vital Signs: Temp Pulse Resp BP Pulse Ox 01/09/17 16:47 97.9 F 64 20 127/80 92 L Departure - Departure Time of Disposition: 19:00 Disposition: HOME SELF-CARE Discharge Problem: Abdominal pain Instructions: Abdominal Pain (ED) Condition: Good Pt referred to PMD for follow-up: No Additional Instructions: Please call your Family Physician as soon as possible to schedule a follow-up appointment. Allergies/Adverse Reactions: Allergies codeine Adverse Reaction (Verified 01/09/17 16:52) Sulfa (Sulfonamide Antibiotics) Adverse Reaction (Verified 01/09/17 16:52) Home Medications: Ambulatory Orders Escitalopram Oxalate 10 mg PO DAILY 04/01/13 Gabapentin 300 mg PO TID 04/01/13 Insulin Glargine,Hum.rec.anlog [Lantus] 15 unit SQ BEDTIME 04/02/13 Alprazolam [Xanax] 1 mg PO TID 07/09/13 Insulin Regular, Human [Novolin R] 100 unit IJ DIRECTED 07/09/13 Lipase/Protease/Amylase [Terri Singh 24,000 Units Capsule] 2 each PO DAILY Omeprazole [Prilosec] 20 mg PO QDAC 08/12/15 Hydrocodone/Acetaminophen [[place] 10-325 Tablet] 10 - 325 mg PO TID PRN 04/11/16 Dicyclomine HCl [Bentyl] 10 mg PO TID PRN #20 capsule 10/12/16 Azithromycin 250 mg PO DAILY 01/09/17 Propranolol HCl 10 mg PO TID 01/09/17
--- NOTE | 2017-01-09 18:23 | CT ---
Exam: CT abdomen pelvis without contrast. Clinical indication: Abdominal pain. No further information is provided. TECHNIQUE: Axial unenhanced CT images of the abdomen and pelvis were obtained followed by coronal a nd sagittal reformats. Comparison is made to the prior study dated 10/25/2016. Findings: There is some mild areas of cylindrical bronchiectasis within the bilateral lower lobes. There is a calcified right middle lobe pulmonary granuloma, consistent with old healed granulomatous disease. T he remainder the visualized portions of the lower thorax are within normal limits. There is no free intra-abdominal gas or fluid. There has been a prior cholecystectomy. The liver, adrenals, and kidneys are grossly unremarkable, given the limitations of an unenhanced CT . The spleen is absent. There are multiple punctate calcifications within the pancreas suggesting chronic pancreatitis. There are multiple enlarged terrell hepatis and peripancreatic lymph nodes measuring up to 1.6 cm in d iameter, but these are grossly unchanged. There is some prominent left periaortic retroperitoneal l ymph nodes as well. The bowel, including the appendix, is grossly unremarkable, other than a prior anastomotic staple line. There is aortoiliac atherosclerotic vascular calcifications. There is lower lumbar degenerative disc and facet disease. Impression: 1. Stable appearance of the enlarged abdominal lymph nodes, of indeterminate significance. 2. Multiple punctate pancreatic calcifications consistent with chronic pancreatitis. 3. Early cylindrical bronchiectasis within the bilateral lower lobes. 4. Otherwise unremarkable CT of the abdomen and pelvis, given the limitations of an unenhanced CT.
--- NOTE | 2017-01-09 18:44 | DI ---
EXAM: Two-view chest HISTORY: Cough COMPARISON: Single-view chest 06/18/2016 FINDINGS: The cardiomediastinal silhouette is stable.. There are emphysematous changes. There is minimal blunting of the right lateral costophrenic angle. IMPRESSION: Normal-sized cardiac silhouette. Chronic obstructive pulmonary disease. Minimal blunting right lateral costophrenic angle
== END 2017-01-09 18:58 | disposition home or self-care (01) ==
LOC: ED 16:46
DX: R10.84 Generalized abdominal pain (principal); E11.9 Type 2 diabetes mellitus without complications; D64.9 Anemia, unspecified; R94.5 Abnormal results of liver function studies; F17.210 Nicotine dependence, cigarettes, uncomplicated; Z87.19 Personal history of other diseases of the digestive system; Z79.899 Other long term (current) drug therapy
CPT/HCPCS: 36415; 80053; 82150; 82550; 83690; 84484; 85025; 93005; 93010; 99283

== ENCOUNTER 2017-03-08 17:01 | Emergency (ER) ==
[2017-03-08 17:17] VITALS: BP 123/77; TEMP 97.2; BMI 26.2
[2017-03-08 17:40] LABS: BASOPHILS # (AUTO) 0.1 K/uL (0-0.2); BASOPHILS % (AUTO) 0.6 % (0.0-3.0); EOSINOPHILS # (AUTO) 0.3 K/ul (0.0-0.7); EOSINOPHILS % (AUTO) 2.7 % (0.0-7.0); HEMATOCRIT 41.2 % (42.0-52.0); HEMOGLOBIN 14.1 g/dl (14.0-18.0); IMMATURE GRANULOCYTE % (AUTO) 0.1 % (0.0-5.0); LYMPHOCYTES % (AUTO) 50.2 (10.0-50.0); MEAN CORPUSCULAR HEMOGLOBIN 32.9 pg (27.0-31.0); MEAN CORPUSCULAR HGB CONC 34.2 (31.8-35.4); MONOCYTES # (AUTO) 1.2 K/uL (0.4-2.0); MONOCYTES % (AUTO) 12.1 (0-10); NEUTROPHILS # (AUTO) 3.4 K/ul (2.0-6.9); NEUTROPHILS % (AUTO) 34.3; PLATELET COUNT 266 10^3/uL (140-440); RED BLOOD COUNT 4.29 10^6/ul (4.70-6.10); WHITE BLOOD COUNT 9.98 K/ul (4.2-10.2)
[2017-03-08 18:00] LABS: ALBUMIN 2.9 g/dL (3.4-5.0); ALBUMIN/GLOBULIN RATIO 0.63; BILIRUBIN,TOTAL 0.84 mg/dL (0.00-1.20); BUN/CREATININE RATIO 12.16; CALCIUM 8.4 mg/dL (8.2-10.2); CREATININE 0.74 mg/dL (0.60-1.10); TOTAL PROTEIN 7.5 g/dL (5.8-8.1)
--- NOTE | 2017-03-08 18:13 | ED.PDOC ---
General ED Provider: Dr. PIERRE LIMA Chief Complaint: Abdominal Pain Stated Complaint: abdominal pain Time Seen by Physician: 17:00 (seen with blanca hess and ROSANNA GRAFF AT ALL TIME ) Mode of Arrival: Walk-In Information Source: Patient Exam Limitations: No limitations Primary Care Provider: SANJUANA ORLANDO Nursing and Triage Documentation Reviewed and Agree: Yes (PT WOULD HIS PAIN MEDS RENEWED ) GI Complaint Exam - Abdominal Pain Complaint/Exam Onset: Gradual Duration: 3 DAYS OF DIFFUSE ABDOMINAL PAIN WOULD LIKE PAIN MEDS REFILL Symptoms Are: Still present Timing: Constant Initial Severity: Mild Current Severity: Mild Location of Pain: Diffuse Character: Reports: Aching Aggravating: Reports: None Alleviating: Reports: None Associated Signs and Symptoms: Denies: Diaphoresis, Fever, Cough, Chest pain, Dizziness, Back pain, Constipation, Blood in stool, Dysuria, Urinary frequency, Decreased urine output, Decreased appetite, Discharge, Nausea, Vomiting, Diarrhea, Decreased activity Related History: Reports: Similar episode Review of Systems - Review Of Systems Constitutional: Reports: No symptoms Eyes: Reports: No symptoms Ears, Nose, Mouth, Throat: Reports: No symptoms Respiratory: Reports: No symptoms Cardiac: Reports: No symptoms GI: Reports: Abdominal pain : Reports: No symptoms Musculoskeletal: Reports: No symptoms Skin: Reports: No symptoms Neurological: Reports: No symptoms Endocrine: Reports: No symptoms Hematologic/Lymphatic: Reports: No symptoms All Other Systems: Reviewed and Negative Past Medical History - Past Medical History Previously Healthy: Yes Endocrine: Reports: DM 2 (sugars controlled per patient follows with Dr Garg) Cardiovascular: Reports: None Respiratory: Reports: None Hematological: Reports: None Gastrointestinal: Reports: Pancreatitis Genitourinary: Reports: None Neuro/Psych: Reports: None Musculoskeletal: Reports: Arthritis, Back Pain Cancer: Reports: None Other Pertinent Past Medical History: chronic low back pain, arthritis ABCESS DRAINED(pancreas) - Surgical History General Surgical History: Reports: Back Surgery, Other (Pancreatic stent placement March/ - both in [place]), Unknown (pancreas, stent placed in pancreas 03/09/16 in [place]) - Family History Family History: Reports: Unknown - Social History Smoking Status: Current every day smoker Hx Substance Use: Yes (alcohol) Alcohol Screening: None Physical Exam - Physical Exam Appearance: Well-appearing, No pain distress, Well-nourished Eyes: BETTIE, EOMI, Conjunctiva clear ENT: Ears normal, Nose normal, Oropharynx normal Respiratory: Airway patent, Breath sounds clear, Breath sounds equal, Respirations nonlabored Cardiovascular: RRR, Pulses normal, No rub, No murmur GI/: Soft, Nontender, No masses, Bowel sounds normal, No Organomegaly Musculoskeletal: Normal strength, ROM intact, No edema, No calf tenderness Skin: Warm, Dry, Normal color Neurological: Sensation intact, Motor intact, Reflexes intact, Cranial nerves intact, Alert, Oriented Psychiatric: Affect appropriate, Mood appropriate Interpretation - Radiology Interpretation Radiology Interpretation By: Radiologist Radiology Results: No acute changes Critical Care Note - Critical Care Note Total Time (mins): 0 Course - Course Hematology/Chemistry: 03/08/17 17:35 03/08/17 17:35 Orders, Labs, Meds: Lab Review 03/08/17 17:35 WBC 9.98 RBC 4.29 L Hgb 14.1 Hct 41.2 L MCV 96.0 H MCH 32.9 H MCHC 34.2 RDW Coeff of Gui 13.4 Plt Count 266 Immature Gran % (Auto) 0.1 Neut % (Auto) 34.3 Lymph % (Auto) 50.2 H Ogle % (Auto) 12.1 H Eos % (Auto) 2.7 Baso % (Auto) 0.6 Immature Gran # (Auto) 0.0 Neut # 3.4 Lymph # 5.0 H Ogle # 1.2 Eos # 0.3 Baso # 0.1 Sodium 138 Potassium 4.0 Chloride 105 Carbon Dioxide 29 Anion Gap 8.0 BUN 9 Creatinine 0.74 Estimated GFR (MDRD) 108.00 BUN/Creatinine Ratio 12.16 Glucose 110 Calcium 8.4 Total Bilirubin 0.84 AST 83 H ALT 71 Alkaline Phosphatase 96 Total Protein 7.5 Albumin 2.9 L Globulin 4.6 Albumin/Globulin Ratio 0.63 Amylase 53 Lipase 8 Orders Category Date Time Status EKG-(ED ONLY) Stat CARDIO 03/08/17 17:25 Completed AMYLASE Stat LAB 03/08/17 17:35 Completed CBC W/ AUTO DIFF Stat LAB 03/08/17 17:35 Completed COMPREHENSIVE METABOLIC PANEL Stat LAB 03/08/17 17:35 Completed LIPASE Stat LAB 03/08/17 17:[address] ABDOMEN/PELVIS WO CONTRAST Stat RADS 03/08/17 17:25 Taken Vital Signs: Temp Pulse Resp BP Pulse Ox 03/08/17 17:02 97.2 F L 56 L 16 123/77 93 L Departure - Departure Time of Disposition: 18:40 (PT WAS WELL KNOWN TO STAFF AND MYSELF. RETURNED FOR TYPICAL ABDOMINAL PAIN AND FOR PAIN. WANTS REFILL FOR OUTPATIENT PAIN MEDICATION. WITH RAQUEL URIARTE, AND ROSANNA GRAFF. I TOLD PATIENT POLITELY THAT I WILL NOT REFILL PAIN MEDICATION WITHOUT ANY INDICATION. LAB WORK WAS NORMAL. AT 6:15PM I TOLD PATIENT PENDING NORMAL CT HE WOULD BE DISCHARGED WITHOUT RENEWAL OF PAIN MEDS. PT STARTED TO INSULT THE STAFF AND THREATENING TO LEAVE. ) Disposition: HOME SELF-CARE Discharge Problem: Abdominal pain Instructions: Chronic Abdominal Pain (ED) Condition: Good Pt referred to PMD for follow-up: Yes Allergies/Adverse Reactions: Allergies codeine Adverse Reaction (Verified 03/08/17 17:17) Sulfa (Sulfonamide Antibiotics) Adverse Reaction (Verified 03/08/17 17:17) Home Medications: Ambulatory Orders Escitalopram Oxalate 10 mg PO DAILY 04/01/13 Gabapentin 300 mg PO TID 04/01/13 Insulin Glargine,Hum.rec.anlog [Lantus] 15 unit SQ BEDTIME 04/02/13 Alprazolam [Xanax] 1 mg PO TID 07/09/13 Insulin Regular, Human [Novolin R] 100 unit IJ DIRECTED 07/09/13 Lipase/Protease/Amylase [Terri Singh 24,000 Units Capsule] 2 each PO DAILY Omeprazole [Prilosec] 20 mg PO QDAC 08/12/15 Dicyclomine HCl [Bentyl] 10 mg PO TID PRN #20 capsule 10/12/16 Propranolol HCl 10 mg PO TID 01/09/17 Lipase/Protease/Amylase [Terri Singh 24,000 Units Capsule] 1 each PO TID and PRN
--- NOTE | 2017-03-08 18:23 | CT ---
EXAM: CT abdomen pelvis without contrast HISTORY: Abdominal pain, history of pancreatitis COMPARISON: 01/09/2017 TECHNIQUE: CT abdomen pelvis performed without intravenous contrast. Coronal and sagittal reformat franko images obtained FINDINGS: Subsegmental atelectasis at the lung bases. Bibasilar lower lobe thickening. No free ai r. No acute abnormalities of the bones. Stable lucent and sclerotic changes in the right iliac bon e. Degenerative changes in the spine, advanced at L5-S1. Heart mildly enlarged. Evaluation organ parenchyma limited without contrast. Caude is enlarged , a finding be seen in cirrhotic configuratio n. Patient status post cholecystectomy. Pancreatic calcifications with the pancreas poorly visuali zed. Spleen is absent. Adrenals unremarkable. No hydronephrosis or nephrolithiasis. No calculi v isualized in normal course of the ureters. Aorta normal in caliber. Moderate atherosclerosis. Gerardo dder unremarkable. Prostate normal in size. Small fat-containing inguinal hernias. Redemonstratio n of several enlarged terrell hepatic/portacaval lymph nodes that appear unchanged. Stomach unremarka ble. Postsurgical changes in the small bowel with suture line in the left abdomen. No bowel obstru ction. Appendix appears normal. Colon unremarkable. IMPRESSION: 1. No acute inflammatory process identified in the abdomen pelvis. 2. Configuration of the liver that can be seen in cirrhosis. 3. Stable enlarged upper abdominal lymph nodes, indeterminate. These are possibly related to under lying liver disease. 4. Changes of chronic pancreatitis. Pancreas poorly visualized. 5. Bibasilar lower lobe thickening, suggesting infectious/inflammatory bronchiolitis. 6. Absent spleen.
== END 2017-03-08 18:20 | disposition left against medical advice (07) ==
LOC: ED 17:01
DX: R10.84 Generalized abdominal pain (principal); G89.29 Other chronic pain; E11.9 Type 2 diabetes mellitus without complications; F17.210 Nicotine dependence, cigarettes, uncomplicated; Z79.899 Other long term (current) drug therapy; Z87.19 Personal history of other diseases of the digestive system
CPT/HCPCS: 36415; 80053; 82150; 83690; 85025; 93005; 93010; 99284

== ENCOUNTER 2017-03-21 11:46 | Emergency (ER) | payer OTHER ==
[2017-03-21 11:52] VITALS: BP 131/80; TEMP 99; BMI 28.3
[2017-03-21 12:23] LABS: BASOPHILS % (AUTO) 0.6 % (0.0-3.0); EOSINOPHILS # (AUTO) 0.1 K/ul (0.0-0.7); EOSINOPHILS % (AUTO) 1.6 % (0.0-7.0); HEMATOCRIT 41.8 % (42.0-52.0); HEMOGLOBIN 14.7 g/dl (14.0-18.0); IMMATURE GRANULOCYTE % (AUTO) 0.1 % (0.0-5.0); LYMPHOCYTES # (AUTO) 3.4 K/uL (0.60-3.4); LYMPHOCYTES % (AUTO) 50.5 (10.0-50.0); MEAN CORPUSCULAR HEMOGLOBIN 33.3 pg (27.0-31.0); MEAN CORPUSCULAR HGB CONC 35.2 (31.8-35.4); MEAN CORPUSCULAR VOLUME 94.6 fl (80.0-94.0); MONOCYTES # (AUTO) 1.1 K/uL (0.4-2.0); MONOCYTES % (AUTO) 15.4 (0-10); NEUTROPHILS # (AUTO) 2.2 K/ul (2.0-6.9); NEUTROPHILS % (AUTO) 31.8; PLATELET COUNT 227 10^3/uL (140-440); RED BLOOD COUNT 4.42 10^6/ul (4.70-6.10); WHITE BLOOD COUNT 6.81 K/ul (4.2-10.2)
[2017-03-21 12:45] LABS: ALBUMIN 2.8 g/dL (3.4-5.0); ALBUMIN/GLOBULIN RATIO 0.56; ANION GAP 10.9; BILIRUBIN,TOTAL 1.15 mg/dL (0.00-1.20); BUN/CREATININE RATIO 13.58; CALCIUM 8.6 mg/dL (8.2-10.2); CREATININE 0.81 mg/dL (0.60-1.10); POTASSIUM 3.9 mmol/L (3.5-5.1); TOTAL PROTEIN 7.8 g/dL (5.8-8.1)
--- NOTE | 2017-03-21 13:04 | CT ---
EXAM: CT ABDOMEN AND PELVIS HISTORY: Abdominal pain radiating to back, history of pancreatitis and partial pancreatic removal TECHNIQUE: CT abdomen and pelvis without intravenous contrast. Images were reconstructed using 5 m m section thickness. Reformations were prepared. COMPARISON: 03/08/2017 FINDINGS: Diagnostic limitations exist without including contrast enhanced images. No focal hepatic lesions i dentified. No spleen is seen. Gallbladder is absent. Multiple punctate calcifications within the visualized pancreas. The pancreatic tail is not seen. There is no convincing evidence of acute victoria creatitis within limits of this exam. Adrenal glands are within normal limits. No hydronephrosis. Mild to moderate atherosclerotic disease. A few prominent retroperitoneal lymph nodes are again se en. No gastric distension. There is twisting of the mesenteric root vessels and stroma in a clockwise f ashion, not seen on previous exam. Postop changes of the mid abdominal bowel are apparent. There i s no evidence of bowel obstruction. Urinary bladder and prostate are within normal limits. There i s no ascites. No ventral abdominal wall hernia. Moderately severe degenerative disc and facet disease at the lumb osacral junction. Lucencies above the right acetabulum are stable suggesting possible Paget's disea se or other benign appearing osseous atypia. Lung bases are free of acute infiltrate. No pneumoper itoneum. IMPRESSION: 1. Evidence of chronic pancreatitis and possible prior pancreatic surgery. There is no convincing evidence of acute pancreatitis on the current limited exam. 2. Prominent mesenteric lymph nodes. Postop changes of the mid abdominal bowel. Slight mesenteric t wisting in a clockwise fashion of indeterminate etiology. Conceivably early volvulus could appear s imilar although there is no evidence of bowel obstruction or abnormal bowel gas pattern currently. Correlate with clinical presentation. Follow-up KUB can be considered if indicated. 3. No definite spleen is identified. 4. Mild to moderate atherosclerotic disease. 5. Moderately severe degenerative disc and facet disease of the lumbosacral junction.
--- NOTE | 2017-03-21 13:08 | ED.PDOC ---
General ED Provider: Dr. PIERRE LIMA Chief Complaint: Abdominal Pain Stated Complaint: chronic abdominal pain Time Seen by Physician: 11:49 (seen with renee at all times negtive trauma) Mode of Arrival: Walk-In Information Source: Patient Exam Limitations: No limitations Primary Care Provider: SANJUANA ORLANDO Nursing and Triage Documentation Reviewed and Agree: Yes GI Complaint Exam - Abdominal Pain Complaint/Exam Onset: Gradual Duration: 1 day Symptoms Are: Still present Timing: Constant Initial Severity: Moderate Current Severity: Mild Location of Pain: Diffuse, Epigastric Character: Reports: Cramping Aggravating: Reports: None Alleviating: Reports: None Associated Signs and Symptoms: Denies: Diaphoresis, Fever, Cough, Chest pain, Dizziness, Back pain, Constipation, Blood in stool, Dysuria, Urinary frequency, Decreased urine output, Decreased appetite, Discharge, Nausea, Vomiting, Diarrhea, Decreased activity Related History: Reports: Similar episode AAA Risk Factors: Reports: None Cardiac Risk Factors: Reports: DM Testicular Torsion Risk Factors: Reports: None Surgical Obstruction Risk Factors: Reports: None Related Surgical History: Reports: None Abdominal Findings: Present: None Differential Diagnoses: Appendicitis, Bowel Obstruction, Constipation, Diverticulitis, Gastroenteritis, Irritable Bowel Syndrome, Pneumonia, Renal Colic, Ureteral Stone, UTI Review of Systems - Review Of Systems Constitutional: Reports: No symptoms Eyes: Reports: No symptoms Ears, Nose, Mouth, Throat: Reports: No symptoms Respiratory: Reports: No symptoms Cardiac: Reports: No symptoms GI: Reports: Abdominal pain : Reports: No symptoms Musculoskeletal: Reports: No symptoms Skin: Reports: No symptoms Neurological: Reports: No symptoms Endocrine: Reports: No symptoms Hematologic/Lymphatic: Reports: No symptoms All Other Systems: Reviewed and Negative Past Medical History - Past Medical History Previously Healthy: Yes Endocrine: Reports: DM 2 (sugars controlled per patient follows with Dr Garg) Cardiovascular: Reports: None Respiratory: Reports: None Hematological: Reports: None Gastrointestinal: Reports: Pancreatitis Genitourinary: Reports: None Neuro/Psych: Reports: None Musculoskeletal: Reports: Arthritis, Back Pain Cancer: Reports: None Other Pertinent Past Medical History: chronic low back pain, arthritis ABCESS DRAINED(pancreas) - Surgical History General Surgical History: Reports: Back Surgery, Other (Pancreatic stent placement March/ - both in [place]), Unknown (pancreas, stent placed in pancreas 03/09/16 in [place]) - Family History Family History: Reports: Unknown - Social History Smoking Status: Current some day smoker Hx Substance Use: No Alcohol Screening: None - Immunizations Tetanus Shot up to Date: No Physical Exam - Physical Exam Appearance: Well-appearing, No pain distress, Well-nourished Eyes: BETTIE, EOMI, Conjunctiva clear ENT: Ears normal, Nose normal, Oropharynx normal Respiratory: Airway patent, Breath sounds clear, Breath sounds equal, Respirations nonlabored Cardiovascular: RRR, Pulses normal, No rub, No murmur GI/: Soft, Nontender, No masses, Bowel sounds normal, No Organomegaly Musculoskeletal: Normal strength, ROM intact, No edema, No calf tenderness Skin: Warm, Dry, Normal color Neurological: Sensation intact, Motor intact, Reflexes intact, Cranial nerves intact, Alert, Oriented Psychiatric: Affect appropriate, Mood appropriate Interpretation - Radiology Interpretation Radiology Interpretation By: Radiologist Critical Care Note - Critical Care Note Total Time (mins): 0 Course - Course Hematology/Chemistry: 03/21/17 12:15 03/21/17 12:15 Orders, Labs, Meds: Lab Review 03/21/17 12:15 WBC 6.81 RBC 4.42 L Hgb 14.7 Hct 41.8 L MCV 94.6 H MCH 33.3 H MCHC 35.2 RDW Coeff of Gui 13.2 Plt Count 227 Immature Gran % (Auto) 0.1 Neut % (Auto) 31.8 Lymph % (Auto) 50.5 H [place] % (Auto) 15.4 H Eos % (Auto) 1.6 Baso % (Auto) 0.6 Immature Gran # (Auto) 0.0 Neut # 2.2 Lymph # 3.4 [place] # 1.1 Eos # 0.1 Baso # 0.0 Sodium 136 Potassium 3.9 Chloride 103 Carbon Dioxide 26 Anion Gap 10.9 BUN 11 Creatinine 0.81 Estimated GFR (MDRD) 97.00 BUN/Creatinine Ratio 13.58 Glucose 239 H Calcium 8.6 Total Bilirubin 1.15 AST 124 H ALT 98 H Alkaline Phosphatase 108 Total Protein 7.8 Albumin 2.8 L Globulin 5.0 Albumin/Globulin Ratio 0.56 Amylase 40 Lipase 5 L Orders Category Date Time Status AMYLASE Stat LAB 03/21/17 12:02 Ordered CBC W/ AUTO DIFF Stat LAB 03/21/17 12:02 Ordered COMPREHENSIVE METABOLIC PANEL Stat LAB 03/21/17 12:02 Ordered LIPASE Stat LAB 03/21/17 12:02 Ordered URINALYSIS C & S IF INDICATED Stat LAB 03/21/17 12:02 Uncollected URINE DRUG SCREEN (RAPID FOR ED) [DRUG SCREEN, URINE, LAB 03/21/17 12:02 Uncollected RAPID] Stat CT ABDOMEN/PELVIS WO CONTRAST Stat RADS 03/21/17 12:03 Ordered Vital Signs: Temp Pulse Resp BP Pulse Ox 03/21/17 11:47 99 F 70 16 131/80 91 L Departure - Departure Time of Disposition: 13:40 (D/C INSTRUCTION GIVEN WITH RENEE AT BED SIDE ) Disposition: HOME SELF-CARE Discharge Problem: Abdominal pain Instructions: Abdominal Pain (ED), Chronic Abdominal Pain (ED) Condition: Good Pt referred to PMD for follow-up: Yes Additional Instructions: Please call your Family Physician as soon as possible to schedule a follow-up appointment. Allergies/Adverse Reactions: Allergies codeine Adverse Reaction (Verified 03/21/17 11:55) Sulfa (Sulfonamide Antibiotics) Adverse Reaction (Verified 03/21/17 11:55) Home Medications: Ambulatory Orders Escitalopram Oxalate 10 mg PO DAILY 04/01/13 Gabapentin 300 mg PO TID 04/01/13 Insulin Glargine,Hum.rec.anlog [Lantus] 15 unit SQ BEDTIME 04/02/13 Alprazolam [Xanax] 1 mg PO TID 07/09/13 Insulin Regular, Human [Novolin R] 100 unit IJ DIRECTED 07/09/13 Lipase/Protease/Amylase [Terri Singh 24,000 Units Capsule] 2 each PO DAILY Omeprazole [Prilosec] 20 mg PO QDAC 08/12/15 Dicyclomine HCl [Bentyl] 10 mg PO TID PRN #20 capsule 10/12/16 Propranolol HCl 10 mg PO TID 01/09/17 Lipase/Protease/Amylase [Terri Singh 24,000 Units Capsule] 1 each PO TID and PRN
[2017-03-21 13:35] LABS: BILIRUBIN,URINE 1+ (NEGATIVE); KETONES,URINE Negative (NEGATIVE); LEUKOCYTE ESTERASE ,URINE Negative (NEGATIVE); NITRITE,URINE Negative (NEGATIVE); PH,URINE 5.5 (5-9); PROTEIN,URINE Trace (NEGATIVE); URINE, BLOOD Negative (NEGATIVE)
[2017-03-21 13:41] LABS: ADD URINE MICROSCOPIC YES
[2017-03-21 13:44] LABS: COCAIN SCREEN,URINE NEGATIVE (NEGATIVE)
== END 2017-03-21 13:23 | disposition home or self-care (01) ==
LOC: ED 11:46
DX: R10.9 Unspecified abdominal pain (principal); G89.29 Other chronic pain; F17.210 Nicotine dependence, cigarettes, uncomplicated; Z79.899 Other long term (current) drug therapy
CPT/HCPCS: 36415; 80053; 80306; 81001; 82150; 83690; 85025; 99283

== ENCOUNTER 2017-04-13 22:34 | Emergency (ER) ==
[2017-04-13 22:47] VITALS: BP 130/78; TEMP 98.6; BMI 25.0
[2017-04-13] MEDS ORDERED: DILAUDID 1 MG/ML SYRINGE IVP STA (23:01)
[2017-04-13] MEDS ORDERED: ZOFRAN 4 MG/2 ML IVP STA (23:01)
[2017-04-13] MEDS ORDERED: SODIUM CHLORIDE 1,000 ML IV STA (23:01)
--- NOTE | 2017-04-13 23:06 | ED.PDOC ---
General ED Provider: Dr. TRAN LAWLER Chief Complaint: Hypoglycemia Stated Complaint: Patient is a 61 year old male who states he has been having worsening of chronic abdominal pain and that he has not been able keep his blood glucose up. He is on insulin and states he has been trying to eat. EMS noted blood glucose was 43 and was given an ampule of D 50 with blood glucose coming up to 175. His main concern is abdominal pain Time Seen by Physician: 23:03 Mode of Arrival: Ambulance Information Source: Patient Exam Limitations: No limitations Primary Care Provider: [facility] Nursing and Triage Documentation Reviewed and Agree: Yes GI Complaint Exam - Abdominal Pain Complaint/Exam Onset: Gradual Duration: 1-2 days Symptoms Are: Still present Timing: Constant Initial Severity: Moderate Current Severity: Severe Location of Pain: Diffuse Character: Reports: Aching Aggravating: Reports: Eating Associated Signs and Symptoms: Denies: Diaphoresis, Fever, Cough, Chest pain, Dizziness, Back pain, Constipation, Blood in stool, Dysuria, Urinary frequency, Decreased urine output, Decreased appetite, Discharge, Nausea, Vomiting, Diarrhea, Decreased activity Related History: Reports: Similar episode AAA Risk Factors: Reports: None Cardiac Risk Factors: Reports: None Testicular Torsion Risk Factors: Reports: None Surgical Obstruction Risk Factors: Reports: Prior abdominal surgery Abdominal Findings: Present: Abdominal distention. Absent: Pulsatile mass, Rebound tenderness Differential Diagnoses: Appendicitis, Bowel Obstruction, Pancreatitis Review of Systems - Review Of Systems Constitutional: Reports: No symptoms Eyes: Reports: No symptoms Ears, Nose, Mouth, Throat: Reports: No symptoms Respiratory: Reports: No symptoms Cardiac: Reports: No symptoms GI: Reports: Abdominal pain, Nausea, Poor appetite : Reports: No symptoms Musculoskeletal: Reports: No symptoms Skin: Reports: No symptoms Neurological: Reports: Anxiety Endocrine: Reports: No symptoms Hematologic/Lymphatic: Reports: No symptoms All Other Systems: Reviewed and Negative Past Medical History - Past Medical History Previously Healthy: Yes Endocrine: Reports: DM 2 (sugars controlled per patient follows with Dr Garg) Cardiovascular: Reports: None Respiratory: Reports: None Hematological: Reports: None Gastrointestinal: Reports: Pancreatitis Genitourinary: Reports: None Neuro/Psych: Reports: None Musculoskeletal: Reports: Arthritis, Back Pain Cancer: Reports: None Other Pertinent Past Medical History: chronic low back pain, arthritis ABCESS DRAINED(pancreas) - Surgical History General Surgical History: Reports: Back Surgery, Other (Pancreatic stent placement March/removal - both in [place]), Unknown (pancreas, stent placed in pancreas 03/09/16 in [place]) - Family History Family History: Reports: Unknown - Social History Smoking Status: Current some day smoker Hx Substance Use: Yes (alcohol in past) Alcohol Screening: None - Immunizations Tetanus Shot up to Date: Yes Physical Exam - Physical Exam Appearance: Ill-appearing, Well-nourished Ill-appearing: Mild Pain Distress: Moderate Eyes: BETTIE, EOMI, Conjunctiva clear ENT: Ears normal, Nose normal, Oropharynx normal Neck: Supple Respiratory: Airway patent, Breath sounds clear, Breath sounds equal, Respirations nonlabored Cardiovascular: Pulses normal, No rub, No murmur, Bradycardia GI/: Soft, No masses, Bowel sounds normal, No Organomegaly, Tender (Mid abdomial scar.) Musculoskeletal: Normal strength, ROM intact, No edema, No calf tenderness Skin: Warm, Dry, Normal color Neurological: Sensation intact, Motor intact, Reflexes intact, Cranial nerves intact, Alert, Oriented Psychiatric: Anxious Interpretation - Radiology Interpretation Radiology Interpretation By: Radiologist Radiology Results: No acute changes (Chronic pancratitis) Exam Interpreted: CT Scan (Abdomen and pelvis ) Re-Evaluation - Re-Evaluation Time of Re-Evaluation: 00:50 Status: Improved Vital Signs Stable: Yes Pain Level: better Critical Care Note - Critical Care Note Total Time (mins): 15 Course - Course Hematology/Chemistry: 04/13/17 23:00 04/13/17 23:00 Orders, Labs, Meds: Lab Review 04/13/17 23:00 WBC 9.25 RBC 4.08 L Hgb 13.6 L Hct 38.5 L MCV 94.4 H MCH 33.3 H MCHC 35.3 RDW Coeff of Gui 12.6 Plt Count 226 Immature Gran % (Auto) 0.2 Neut % (Auto) 40.2 Lymph % (Auto) 41.1 Major % (Auto) 14.9 H Eos % (Auto) 2.7 Baso % (Auto) 0.9 Immature Gran # (Auto) 0.0 Neut # 3.7 Lymph # 3.8 H [place] # 1.4 Eos # 0.3 Baso # 0.1 Sodium 138 Potassium 3.8 Chloride 104 Carbon Dioxide 28 Anion Gap 9.8 BUN 11 Creatinine 0.82 Estimated GFR (MDRD) 96.00 BUN/Creatinine Ratio 13.41 Glucose 130 H Calcium 8.5 Total Bilirubin 1.04 AST 124 H ALT 85 H Alkaline Phosphatase 132 H Total Protein 7.7 Albumin 2.7 L Globulin 5.0 Albumin/Globulin Ratio 0.54 Amylase 52 Lipase < 4 L Orders Category Date Time Status ACCUCHECK (ED) [ED ACCUCHECK ASSESSMENT] .ONCE EMERGENCY 04/14/17 00:26 Active AMYLASE Stat LAB 04/13/17 23:00 Completed CBC W/ AUTO DIFF Stat LAB 04/13/17 23:00 Completed COMPREHENSIVE METABOLIC PANEL Stat LAB 04/13/17 23:00 Completed LIPASE Stat LAB 04/13/17 23:00 Completed Dicyclomine Inj [Bentyl] MEDS 04/14/17 00:11 Discontinued 20 mg IM ONCE STA Hydromorphone HCl [Dilaudid 1 mg/ml Syringe] MEDS 04/13/17 23:01 Discontinued 1 mg IVP ONCE STA Ondansetron HCl/Pf [Zofran 4 mg/2 ml] MEDS 04/13/17 23:01 Discontinued 4 mg IVP ONCE STA Sodium Chloride 0.9% [Sodium Chloride] 1,000 ml MEDS 04/13/17 23:[address] ABD/PEL WO RENAL STONE PROT Stat RADS 04/13/17 23:07 Completed Medications Discontinued Medications Generic Name Dose Route Start Last Admin Trade Name Freq PRN Reason Stop Dose Admin Dicyclomine HCl 20 mg 04/14/17 00:11 04/14/17 00:20 Bentyl IM 04/14/17 00:12 20 mg ONCE STA Administration Hydromorphone HCl 1 mg 04/13/17 23:01 04/13/17 23:08 Dilaudid 1 Mg/Ml Syringe IVP 04/13/17 23:02 1 mg ONCE STA Administration Sodium Chloride 1,000 mls @ 1,000 mls/hr 04/13/17 23:01 04/13/17 23:09 Sodium Chloride IV 04/14/17 00:00 1,000 mls/hr BOLUS STA Administration Ondansetron HCl 4 mg 04/13/17 23:01 04/13/17 23:09 Zofran 4 Mg/2 Ml IVP 04/13/17 23:02 4 mg ONCE STA Administration Vital Signs: Temp Pulse Resp BP Pulse Ox 04/13/17 22:35 98.6 F 51 L 20 130/78 93 L Departure - Departure Time of Disposition: 01:00 Disposition: HOME SELF-CARE Discharge Problem: Hypoglycemia Chronic pancreatitis Qualifiers: Pancreatitis type: unspecified pancreatitis type Qualifier Code: (K86.1) Other chronic pancreatitis Instructions: Pancreatitis (ED), Hypoglycemia in a Person with Diabetes (ED) Condition: Fair Pt referred to PMD for follow-up: Yes Additional Instructions: Continue home medications as prescribed. Follow up with LITZ[facility] Pin 1 days. hold Regular insulin until seen by PCP Allergies/Adverse Reactions: Allergies codeine Adverse Reaction (Verified 04/13/17 22:47) Sulfa (Sulfonamide Antibiotics) Adverse Reaction (Verified 04/13/17 22:47) Home Medications: Ambulatory Orders Escitalopram Oxalate 10 mg PO DAILY 04/01/13 Gabapentin 300 mg PO TID 04/01/13 Insulin Glargine,Hum.rec.anlog [Lantus] 15 unit SQ BEDTIME 04/02/13 Alprazolam [Xanax] 1 mg PO TID 07/09/13 Insulin Regular, Human [Novolin R] 100 unit IJ DIRECTED 07/09/13 Lipase/Protease/Amylase [Terri Singh 24,000 Units Capsule] 2 each PO DAILY Omeprazole [Prilosec] 20 mg PO QDAC 08/12/15 Dicyclomine HCl [Bentyl] 10 mg PO TID PRN #20 capsule 10/12/16 Propranolol HCl 10 mg PO TID 01/09/17 Lipase/Protease/Amylase [Terri Singh 24,000 Units Capsule] 1 each PO TID and PRN Disposition Discussed With: Patient
[2017-04-13 23:08] LABS: BASOPHILS # (AUTO) 0.1 K/uL (0-0.2); BASOPHILS % (AUTO) 0.9 % (0.0-3.0); EOSINOPHILS # (AUTO) 0.3 K/ul (0.0-0.7); EOSINOPHILS % (AUTO) 2.7 % (0.0-7.0); HEMATOCRIT 38.5 % (42.0-52.0); HEMOGLOBIN 13.6 g/dl (14.0-18.0); IMMATURE GRANULOCYTE % (AUTO) 0.2 % (0.0-5.0); LYMPHOCYTES # (AUTO) 3.8 K/uL (0.60-3.4); LYMPHOCYTES % (AUTO) 41.1 (10.0-50.0); MEAN CORPUSCULAR HEMOGLOBIN 33.3 pg (27.0-31.0); MEAN CORPUSCULAR HGB CONC 35.3 (31.8-35.4); MEAN CORPUSCULAR VOLUME 94.4 fl (80.0-94.0); MONOCYTES # (AUTO) 1.4 K/uL (0.4-2.0); MONOCYTES % (AUTO) 14.9 (0-10); NEUTROPHILS # (AUTO) 3.7 K/ul (2.0-6.9); NEUTROPHILS % (AUTO) 40.2; PLATELET COUNT 226 10^3/uL (140-440); RED BLOOD COUNT 4.08 10^6/ul (4.70-6.10); WHITE BLOOD COUNT 9.25 K/ul (4.2-10.2)
[2017-04-13 23:28] LABS: ALBUMIN 2.7 g/dL (3.4-5.0); AMYLASE 52 U/L (25-115); CALCIUM 8.5 mg/dL (8.2-10.2); CHLORIDE 104 mmol/L (98-107); GLUCOSE 130 mg/dL (82-115); POTASSIUM 3.8 mmol/L (3.5-5.1); SODIUM 138 mmol/L (136-145); TOTAL PROTEIN 7.7 g/dL (5.8-8.1)
[2017-04-13 23:29] LABS: ALANINE AMINOTRANSFERASE 85 U/L (12-78); ALBUMIN/GLOBULIN RATIO 0.54; ALKALINE PHOSPHATASE 132 U/L (56-119); ANION GAP 9.8; ASPARTATE AMINO TRANSFERASE 124 U/L (15-37); BILIRUBIN,TOTAL 1.04 mg/dL (0.00-1.20); BLOOD UREA NITROGEN 11 mg/dL (7-18); BUN/CREATININE RATIO 13.41; CARBON DIOXIDE 28 mmol/L (23-31); CREATININE 0.82 mg/dL (0.60-1.10)
[2017-04-13 23:30] LABS: LIPASE < 4 U/L (8-78)
[2017-04-14] MEDS ORDERED: BENTYL IM STA (00:11)
--- NOTE | 2017-04-14 00:21 | CT ---
EXAM: CT of the abdomen and pelvis without contrast. HISTORY: Abdominal pain. Chronic pancreatitis. PROCEDURE: Contiguous axial CT images of the abdomen and pelvis without contrast with coronal and s agittal reformats. FINDINGS: Comparison made with CT abdomen/pelvis 10/12/2016. The liver is normal in appearance. The gallbladder is surgically absent. There are calcifications in the pancreas consistent with chronic pancreatitis. No CT evidence of acute pancreatitis. The spleen is absent. The adrenal glands and kidneys are normal in appearance. The abdominal aorta is within normal limits in diameter. There ar e surgical sutures along the margin of a patulous segment of small bowel in the upper pelvis. The a ppendix is normal in appearance. There is fecal stasis in the colon. No free fluid or free air in the abdomen or pelvis. The bladder is adequately filled with no abnormality identified. The seminal vesicles and prostate gland are unremarkable. There are degenerative changes in the spine. There ar e stable chronic lytic and sclerotic changes in the right pelvis. Impression: Calcifications in the pancreas consistent with chronic pancreatitis. No CT evidence of acute pancreatitis. Recommend correlation with amylase and lipase levels if clinically indicated. Fecal stasis in the colon. Cholecystectomy. Splenectomy. Operative changes involving the small bowel as described.
== END 2017-04-14 00:55 | disposition home or self-care (01) ==
LOC: ED 22:34
DX: E11.649 Type 2 diabetes mellitus with hypoglycemia without coma (principal); K86.1 Other chronic pancreatitis; F17.210 Nicotine dependence, cigarettes, uncomplicated; Z79.4 Long term (current) use of insulin
CPT/HCPCS: 36415; 74176; 80053; 82150; 82962; 83690; 85025; 96361; 96372; 96374; 96375; 99283

== ENCOUNTER 2017-04-16 15:44 | Emergency (ER) ==
[2017-04-16 15:47] VITALS: BP 172/91; TEMP 98.3; BMI 25.4
[2017-04-16] MEDS ORDERED: DEMEROL 25 MG/ML SYRINGE IM STA (16:14)
[2017-04-16] MEDS ORDERED: ZOFRAN 4 MG/2 ML IM STA (16:14)
--- NOTE | 2017-04-16 16:17 | ED.PDOC ---
General ED Provider: Dr. BILL RAE Chief Complaint: Abdominal Pain Stated Complaint: Patient has chronic abdominal pain, he goes to DR Law, he started him on Oxycodone, patient says he used to take [place], oxycodone does not help him. Time Seen by Physician: 16:15 Mode of Arrival: Walk-In Information Source: Patient Primary Care Provider: BILL RAE[facility] Nursing and Triage Documentation Reviewed and Agree: Yes GI Complaint Exam - Abdominal Pain Complaint/Exam Onset: Gradual Symptoms Are: Still present Initial Severity: Moderate Current Severity: Moderate Location of Pain: Discrete Radiates To: Reports: Back, Flank Character: Reports: Dull, Aching Aggravating: Reports: None Alleviating: Reports: None AAA Risk Factors: Reports: None Cardiac Risk Factors: Reports: None Testicular Torsion Risk Factors: Reports: None Surgical Obstruction Risk Factors: Reports: None Related Surgical History: Reports: None Abdominal Findings: Absent: Pulsatile mass, Abdominal distention, Unequal femoral pulses Differential Diagnoses: Pancreatitis (chronic) Review of Systems - Review Of Systems Constitutional: Reports: No symptoms Eyes: Reports: No symptoms Ears, Nose, Mouth, Throat: Reports: No symptoms Respiratory: Reports: No symptoms Cardiac: Reports: No symptoms GI: Reports: Abdominal pain : Reports: No symptoms Musculoskeletal: Reports: No symptoms Skin: Reports: No symptoms Neurological: Reports: No symptoms Endocrine: Reports: No symptoms Hematologic/Lymphatic: Reports: No symptoms All Other Systems: Reviewed and Negative Past Medical History - Past Medical History Previously Healthy: Yes Endocrine: Reports: DM 2 (sugars controlled per patient follows with Dr Garg) Cardiovascular: Reports: None Respiratory: Reports: None Hematological: Reports: None Gastrointestinal: Reports: Pancreatitis Genitourinary: Reports: None Neuro/Psych: Reports: None Musculoskeletal: Reports: Arthritis, Back Pain Cancer: Reports: None Other Pertinent Past Medical History: chronic low back pain, arthritis ABCESS DRAINED(pancreas) - Surgical History General Surgical History: Reports: Back Surgery, Other (Pancreatic stent placement March/removal - both in [place]), Unknown (pancreas, stent [place] in pancreas 03[place]16 [place] - Family History Family History: Reports: Unknown - Social History Smoking Status: Current some day smoker Hx Substance Use: Yes (alcohol in past) Alcohol Screening: None Physical Exam - Physical Exam Appearance: Ill-appearing Pain Distress: Moderate Eyes: BETTIE, EOMI, Conjunctiva clear ENT: Ears normal, Nose normal, Oropharynx normal Respiratory: Airway patent, Breath sounds clear, Breath sounds equal, Respirations nonlabored Cardiovascular: RRR, Pulses normal, No rub, No murmur GI/: Tender Musculoskeletal: Normal strength, ROM intact, No edema, No calf tenderness Skin: Warm, Dry, Normal color Neurological: Sensation intact, Motor intact, Reflexes intact, Cranial nerves intact, Alert, Oriented Psychiatric: Affect appropriate, Mood appropriate Critical Care Note - Critical Care Note Total Time (mins): 0 Course - Course Orders, Labs, Meds: Orders Category Date Time Status Meperidine HCl/Pf [Demerol 25 mg/ml Syringe] MEDS 04/16/17 16:14 Stat 25 mg IM ONCE STA Ondansetron HCl/Pf [Zofran 4 mg/2 ml] MEDS 04/16/17 16:14 Stat 4 mg IM ONCE STA Medications Generic Name Dose Route Start Last Admin Trade Name Freq PRN Reason Stop Dose Admin Meperidine HCl 25 mg 04/16/17 16:14 Demerol 25 Mg/Ml Syringe IM 04/16/17 16:15 ONCE STA Ondansetron HCl 4 mg 04/16/17 16:14 Zofran 4 Mg/2 Ml IM 04/16/17 16:15 ONCE STA Vital Signs: Temp Pulse Resp BP Pulse Ox 04/16/17 15:45 98.3 F 59 L 16 172/91 H 94 L Departure - Departure Time of Disposition: 16:19 Disposition: HOME SELF-CARE Discharge Problem: Abdominal pain Chronic pancreatitis Qualifiers: Pancreatitis type: other Qualifier Code: (K86.1) Other chronic pancreatitis Instructions: Pancreatitis (ED) Condition: Good Pt referred to PMD for follow-up: Yes Additional Instructions: Please keep f/u with Dr Law as he has to change the medications, patient agreed to do that Allergies/Adverse Reactions: Allergies codeine Adverse Reaction (Verified 04/16/17 15:49) Sulfa (Sulfonamide Antibiotics) Adverse Reaction (Verified 04/16/17 15:49) Home Medications: Ambulatory Orders Escitalopram Oxalate 10 mg PO DAILY 04/01/13 Gabapentin 300 mg PO TID 04/01/13 Insulin Glargine,Hum.rec.anlog [Lantus] 15 unit SQ BEDTIME 04/02/13 Alprazolam [Xanax] 1 mg PO TID 07/09/13 Insulin Regular, Human [Novolin R] 0 unit IJ DIRECTED 07/09/13 Lipase/Protease/Amylase [Terri Singh 24,000 Units Capsule] 2 each PO DAILY Omeprazole [Prilosec] 20 mg PO QDAC 08/12/15 Dicyclomine HCl [Bentyl] 10 mg PO TID PRN #20 capsule 10/12/16 Propranolol HCl 10 mg PO TID 01/09/17 Lipase/Protease/Amylase [Terri Singh 24,000 Units Capsule] 1 each PO TID and PRN Insulin Aspart [Novolog] 0 unit SQ DIRECTED PRN 04/16/17 Disposition Discussed With: Patient
== END 2017-04-16 16:46 | disposition home or self-care (01) ==
LOC: ED 15:44
DX: K86.1 Other chronic pancreatitis (principal); F17.210 Nicotine dependence, cigarettes, uncomplicated
CPT/HCPCS: 96372; 99283

== ENCOUNTER 2017-05-18 09:42 | Outpatient (CLI) ==
[2017-05-18 10:46] LABS: ALBUMIN 2.2 g/dL (3.4-5.0); ALBUMIN/GLOBULIN RATIO 0.41; ANION GAP 10.1; BILIRUBIN,TOTAL 9.27 mg/dL (0.00-1.20); BUN/CREATININE RATIO 9.87; CALCIUM 8.6 mg/dL (8.2-10.2); CREATININE 0.81 mg/dL (0.60-1.10); POTASSIUM 4.1 mmol/L (3.5-5.1); TOTAL PROTEIN 7.6 g/dL (5.8-8.1)
== END 2017-05-18 09:43 | disposition home or self-care (01) ==
LOC: LAB 09:42
PROVIDERS: ATTEND Emergency Medicine
DX: E11.22 Type 2 diabetes mellitus with diabetic chronic kidney disease (principal); I10 Essential (primary) hypertension; K86.1 Other chronic pancreatitis
CPT/HCPCS: 36415; 80053

== ENCOUNTER 2017-05-25 12:49 | Outpatient (CLI) | END 2017-05-25 12:50 | disposition home or self-care (01) | LOC: LAB 12:49 | PROVIDERS: ATTEND Nurse Practitioner Family | DX: K86.1 Other chronic pancreatitis (principal); B18.2 Chronic viral hepatitis C; K74.60 Unspecified cirrhosis of liver; R74.8 Abnormal levels of other serum enzymes | CPT/HCPCS: 36415; 86617 ==

== ENCOUNTER 2017-05-26 11:25 | Outpatient (CLI) | END 2017-05-26 11:26 | disposition short-term general hospital (02) | LOC: AMBL 11:25 | PROVIDERS: ATTEND Internal Medicine | DX: R53.1 Weakness (principal); H91.90 Unspecified hearing loss, unspecified ear; K14.6 Glossodynia; R73.9 Hyperglycemia, unspecified ==

== ENCOUNTER 2017-05-30 15:12 | Outpatient (CLI) ==
[2017-05-30 15:30] LABS: BASOPHILS % (AUTO) 0.2 % (0.0-3.0); HEMATOCRIT 34.8 % (42.0-52.0); HEMOGLOBIN 13.2 g/dl (14.0-18.0); IMMATURE GRANULOCYTE % (AUTO) 0.8 % (0.0-5.0); LYMPHOCYTES # (AUTO) 1.1 K/uL (0.60-3.4); LYMPHOCYTES % (AUTO) 4.9 (10.0-50.0); MEAN CORPUSCULAR HEMOGLOBIN 35.4 pg (27.0-31.0); MEAN CORPUSCULAR HGB CONC 37.9 (31.8-35.4); MEAN CORPUSCULAR VOLUME 93.3 fl (80.0-94.0); MONOCYTES # (AUTO) 1.3 K/uL (0.4-2.0); NEUTROPHILS # (AUTO) 19.1 K/ul (2.0-6.9); NEUTROPHILS % (AUTO) 88.1; RED BLOOD COUNT 3.73 10^6/ul (4.70-6.10)
[2017-05-30 15:33] LABS: WHITE BLOOD COUNT 21.67 K/ul (4.2-10.2)
[2017-05-30 15:36] LABS: PLATELET COUNT 246 10^3/uL (140-440)
[2017-05-30 15:41] LABS: ANISOCYTOSIS 1+ (NOT PRESENT); TARGET CELLS 3+ (NOT PRESENT)
[2017-05-30 15:45] LABS: ALBUMIN 2.2 g/dL (3.4-5.0); ALBUMIN/GLOBULIN RATIO 0.41; ANION GAP 12.7; BILIRUBIN,TOTAL 13.39 mg/dL (0.00-1.20); BUN/CREATININE RATIO 18.07; CALCIUM 8.6 mg/dL (8.2-10.2); CREATININE 0.83 mg/dL (0.60-1.10); POTASSIUM 4.7 mmol/L (3.5-5.1); TOTAL PROTEIN 7.6 g/dL (5.8-8.1)
--- NOTE | 2017-05-30 16:31 | US ---
EXAM: Bilateral lower extremity venous doppler. HISTORY: Bilateral lower extremity pain and swelling. COMPARISON: None available. TECHNIQUE: Multiple grayscale and color doppler images were obtained. FINDINGS: There is normal flow, compressibility and augmentation of flow within the right and left c ommon femoral, greater saphenous, profunda, femoral, popliteal, and peroneal veins. Color flow and co mpressibility noted in the right posterior tibial vein. The left posterior tibial vein and the bilat eral anterior tibial veins are not identified. Subcutaneous edema noted in the calves. IMPRESSION: No evidence for right or left lower extremity deep vein thrombosis at the levels examined.
== END 2017-05-30 15:13 | disposition home or self-care (01) ==
LOC: RAD 15:12
PROVIDERS: ATTEND Emergency Medicine
DX: R60.0 Localized edema (principal); G93.40 Encephalopathy, unspecified; K86.1 Other chronic pancreatitis; M47.26 Other spondylosis with radiculopathy, lumbar region; E11.22 Type 2 diabetes mellitus with diabetic chronic kidney disease; F33.1 Major depressive disorder, recurrent, moderate; F41.1 Generalized anxiety disorder; G62.9 Polyneuropathy, unspecified; I10 Essential (primary) hypertension
CPT/HCPCS: 36415; 80053; 82140; 85008; 85025

== ENCOUNTER 2017-06-07 18:57 | Outpatient (CLI) | END 2017-06-07 18:58 | disposition short-term general hospital (02) | LOC: AMBL 18:57 | PROVIDERS: ATTEND Internal Medicine | DX: R41.82 Altered mental status, unspecified (principal); R17 Unspecified jaundice; R53.1 Weakness ==